=== PATIENT | female | born 1950 | race Caucasian/White ===

== ENCOUNTER → 2024-10-04 11:23 | Outpatient (REF) | payer MEDICARE, OTHER, SELFPAY ==
[2024-10-04 12:42] LABS: Hematocrit 37.3 % (37.0-47.0); Hemoglobin 11.8 g/dL (12.0-16.0); Mean Corp Hgb Conc. 31.6 g/dL (33.0-37.0); Mean Corpuscular Volume 92.3 fL (81.0-99.0); Nucleated Red Blood Cells % 0 %; Platelet Count 297 10^3/uL (130-400); Red Cell Dist. Width 17.2 % (11.5-14.5)
[2024-10-04 13:03] LABS: ALT (SGPT) < 10 U/L (0-35); AST (SGOT) 19 U/L (14-36); Albumin 4.0 g/dl (3.5-5.0); Alkaline Phosphatase 46 U/L (38-126); Blood Urea Nitrogen 18 mg/dl (7-17); Calcium 9.4 mg/dl (8.4-10.2); Carbon Dioxide 26 mmol/L (22-30); Chloride 105 mmol/L (98-107); Glucose 110 mg/dl (70-99); Potassium 4.6 mmol/L (3.5-5.1); Sodium 136 mmol/L (135-145); Total Protein 6.4 g/dl (6.3-8.2); eGFR > 60.00
[2024-10-04 13:09] LABS: C-Reactive Protein < 5.00 mg/L (0.0-10.00)
== END ==
LOC: RAD 11:23
PROVIDERS: ATTENDING PHYSICIAN Podiatrist; FAMILY PHYSICIAN Internal Medicine Rheumatology; REFERRING PHYSICIAN Family Medicine
DX: R60.0 Localized edema (principal)
CPT/HCPCS: 36415; 80053; 85025; 85652; 86140; 93971

== ENCOUNTER 2024-11-04 09:32 | Inpatient (IN) | payer MEDICARE, OTHER, SELFPAY ==
[2024-11-02] VITALS (12 sets, daily range): BP systolic 105–170; BP diastolic 61–135; BMI 17.8; BMI 19.2
--- NOTE | 2024-11-02 08:39 | ED.GENMED ---
History of Present Illness
General
Chief Complaint: Change in Mental Status
Time Seen by Provider: 11/02/24 08:39
History of Present Illness
History of Present Illness:
PAST MEDICAL HISTORY AND REVIEW OF OLD RECORDS
- The patient has a history of diverticular disease with colostomy related to ruptured diverticuli, history of memory loss. The patient had an endoscopy approximately 6 weeks ago that showed a hiatal hernia, single gastric polyp that was resected,
antral erythema and stomach mucosal changes were biopsied.
Note:
CHIEF COMPLAINT(S)
Headache and change in mental status.
HISTORY OF PRESENT ILLNESS
The patient is a 74-year-old female who presents with complaints of headache and a change in mental status. Her reports that the headache and ear pain have been present since June, with variable symptoms. Additionally, she has been
increasingly weak at home with fluctuating mental status, which is a significant concern and prompted the visit today. The patient lives at home with her . She is oriented to person but is unable to correctly identify the month or the
hospital she is currently in.
ADDITIONAL HISTORY OBTAINED FROM SOURCE OTHER THAN PATIENT
Per the patients , the patient has been experiencing a headache and ear pain since June, along with increased weakness and changes in mental status.
EXTERNAL RECORDS REVIEWED
The patients records indicate that she has an existing colostomy.
PHYSICAL EXAM
General: Alert, no acute distress.
Skin: Warm, dry.
Head: Normocephalic, atraumatic.
Neck: Supple, trachea midline.
Eye Ears, nose, mouth, and throat: Oral mucosa slightly dry.
Cardiovascular: Normal peripheral perfusion, No edema. Regular rhythm.
Respiratory: Respirations are non-labored.
Gastrointestinal: Abdomen nondistended. Colostomy bag present. Nontender abdomen.
Back: Normal range of motion
Musculoskeletal: Normal ROM, normal strength.
Neurological: Alert and oriented to person, she knows she is at a hospital but cannot recall which , she thinks it is February (currently October). No motor or sensory deficits.
Psychiatric: Cooperative, appropriate mood & affect. Memory impairment noted.
PLAN
- Obtain a urine sample via catheterization for analysis.
- Perform a CT scan of the brain to assess for any acute intracranial pathology.
- Administer intravenous fluids.
- Monitor and reassess the patients condition after initial interventions.
DIFFERENTIAL DIAGNOSIS
The Differential Diagnosis includes, in no particular order and is not limited to:
- Stroke
- Transient ischemic attack (TIA)
- Intracranial mass or lesion
- Dementia or delirium
- Urinary tract infection with delirium
- Medication side effects or intoxication
- Metabolic derangements (e.g., electrolyte imbalance)
- Infection (e.g., meningitis, encephalitis)
- Depression or other psychiatric conditions
SUMMARY OF ENCOUNTER
The patient presented to the emergency department with complaints of headache and changes in mental status. Her symptoms have been chronic but with a recent increase in weakness and altered mental alertness at home, as reported by her . The
initial clinical evaluation included obtaining a urine sample and planning for a CT scan to further investigate potential acute causes of her symptoms.
MEDICAL DECISION MAKING
1. Number and Complexity of Problems Addressed: Chronic conditions affecting care [Existing colostomy] along with the differential diagnosis list.
2. Data:
- Category 1: Tests and documents
- Urinalysis and CT scan of the brain are planned.
- Category 2: Assessment requiring an independent historian(s)
- Information was obtained from the patients regarding the onset and nature of symptoms.
3. Risk:
- Prescription drug management or therapy requiring monitoring for toxicity.
- Decisions regarding diagnostic testing with risks (e.g., CT scan with radiation exposure).
DIAGNOSIS
- Headache, unspecified (ICD-10: R51.9)
- Altered mental status (ICD-10: R41.82)
RADIOLOGY
- CT head shows no acute abnormality other than meningiomas which were present in the past.
EKG
- Sinus 77 precordial T wave inversion however this is similar to EKG from July of this year
LABS
- The urinalysis shows no clear sign of infection, white count and hemoglobin are both normal, chemistry shows sodium of 132, bicarb normal, renal function normal
UPDATE
-SUMMARY OF ENCOUNTER
The patient, a 74-year-old female, was seen in the emergency department for severe headaches, ear pain, and jaw pain. Upon evaluation, a CT scan of the brain was performed to rule out acute intracranial pathology such as bleeding or tumors. The CT
scan showed the presence of meningiomas, which had been previously identified and known to be benign. The primary concern today involved her being unresponsive earlier and lying in bed in a puddle of urine. The patient has a known history of
temporal arteritis for which she is being treated with prednisone and infusions of abatacept (Orencia). The patients increased mental alertness and responsiveness were noted after administration of intravenous fluids. Her condition is complicated by
jaw clicking sounds possibly related to temporomandibular joint (TMJ) issues, which prompts a suggested referral to an oral surgeon. Further evaluation with additional blood tests, including sedimentation rate (ESR) and C-reactive protein (CRP),
were ordered to assess for inflammation or signs of temporal arteritis exacerbation.
PLAN
- Perform an EKG and additional blood tests including sedimentation rate (ESR) and C-reactive protein (CRP) to assess inflammation.
- Continue monitoring the patients condition and response to intravenous fluids.
- Suggest patient follow-up with an oral surgeon and potentially a regular dentist for the TMJ-related issues and evaluate the Eustachian tube.
- Continue current regimen for temporal arteritis, with ongoing management by her derrick builder.
- Keep an alert for further unresponsiveness or changes in her mental state.
INDEPENDENT REVIEW OF LABS AND INTERPRETATION OF TESTS
- My independent review of the urine test is no sign of infection.
- My independent review of the CT scan indicates the presence of meningiomas with no acute intracranial pathology.
PATIENT EDUCATION AND COUNSELING
Patient was counseled on the benign nature of her meningiomas and the next steps for addressing TMJ issues and potential Eustachian tube dysfunction.
FOLLOW-UP INSTRUCTIONS
Patient is advised to follow up with an oral surgeon and their regular dentist regarding TMJ symptoms and possible Eustachian tube dysfunction. The patient should also maintain regular appointments with the derrick builder for management of temporal
arteritis.
MEDICATION RECONCILIATION
1. Prednisone (generic name) - current medication for temporal arteritis.
2. Abatacept (Orencia) - infusion therapy for temporal arteritis.
MEDICAL DECISION MAKING
- Number and Complexity of Problems Addressed: Chronic conditions affecting care [temporal arteritis, known meningiomas, TMJ disorder].
- Data:
Category 1:
- CT scan of the brain was independently reviewed.
- Clinical information was obtained from an independent historian, the patients .
Category 2:
- My independent interpretation of the CT scan of the brain shows no acute intracranial pathology.
Category 3:
- No specific discussion with other healthcare providers was documented in this encounter.
- Risk:
- Consideration of Admission/Observation: Escalation of care including admission/observation was considered given the complexity and risk of the patients presenting complaint, exam findings, and/or their underlying comorbidities. However,
ultimately, I feel the patient is safe for outpatient management with close follow-up. Reasoning: Work-up reassuring, does not reveal any acute life/organ threatening processes, patients symptoms well controlled upon reevaluation, reexamination is
reassuring, vitals are stable, patient agreeable with discharge, reliable for follow-up.
DIAGNOSIS
- Headache, unspecified (ICD-10: R51.9)
- Altered mental status (ICD-10: R41.82)
- Temporal arteritis (ICD-10: M31.5)
I communicated with ENT and oral surgery at 's request - ENT (Chuy) recommends anti-inflamm and muscle relaxer
I had discussion with Dr. Pearl Matute -she has no other clear recommendations from a rheumatologic standpoint. I am concerned about the rapid rise in the C-reactive protein. Of note she does have ulnar deviation to her fingers consistent
with rheumatoid arthritis however it is unclear to me if she does carry this diagnosis. She was also concerned because her mental status has been deteriorating last time she saw her seemed rather sharp. I have asked hospitalist to keep for further
evaluation.
Past History
Past History
ED Past Medical History: Other (chronic back pain, immunodeficiency, colostomy) and Other (Diverticulosis ulcer disease)
ED Past Surgical History: Bowel resection
Social History
Tobacco: Smoker
Alcohol: None
Drug: None
Personal:
Living: with family
Employment: Employed
Phy Exam
Physical Exam
Physical Exam:
See HPI
Course
Orders/Labs/Results
Orders:
Orders
11/02/24 08:44
Straight cath- Treatment ONCE
0.9% Sodium Chloride 500 ml [Nss] 500 ml IV BOLUS
11/02/24 08:45
CT Head W/o Iv Contrast Urgent
Comment:
Reason For Exam: altered mental status
11/02/24 08:59
C-Reactive Protein Urgent
Comment: ADD ON
Complete Blood Count/With Diff Urgent
Comprehensive Metabolic Panel Urgent
Erythrocyte Sed Rate Urgent
Comment: ADD ON
Urinalysis Reflex To Culture Urgent
Date Specimen was Collected: 11/02/24
Time Specimen was Collected: 08:51
Urine Microscopic Reflex Cult Urgent
Urine Culture Urgent
MARINO Source: U
Specimen Description:
Date Specimen was Collected: 11/02/24
Time Specimen was Collected: 08:51
11/02/24 10:23
Add On- LAB Urgent
Tests Added?: cRP ESR
11/02/24 10:24
Acetaminophen [Tylenol] 1,000 mg PO NOW STA
11/02/24 10:30
Electrocardiogram (*1) Urgent
Reason for Study: Syncope
EKG- Treatment ONCE
Abnormal Lab Results
11/02/24
08:59
MCHC 32.2 L g/dL
(33.0-37.0)
RDW 17.2 H %
(11.5-14.5)
Absolute Lymphs (auto) 0.6 L 10^3/uL
(1.2-3.4)
Absolute Monos (auto) 1.0 H 10^3/uL
(0.1-0.6)
Lymphocytes % 9.3 L %
(20.5-51.1)
Monocytes % 16.4 H %
(1.7-9.3)
ESR 61 H mm/hour
(0-20)
Sodium 132 L mmol/L
(135-145)
Chloride 97 L mmol/L
(98-107)
BUN 18 H mg/dl
(7-17)
C-Reactive Protein 181.50 H mg/L
(0.0-10.00)
Total Protein 6.2 L g/dl
(6.3-8.2)
Urine Bacteria (Reflex) Moderate A
(Negative)
Urine Albumin (Reflex) 1+ A
(Neg - Trace)
11/02/24 08:59
11/02/24 08:59
Vital Signs
Initial and Last Documented VS:
Initial Vital Signs
Pulse Resp BP Pulse Ox
86 19 124/70 96
11/02/24 08:40 11/02/24 08:40 11/02/24 08:40 11/02/24 08:40
Last Documented Vital Signs
Temp Pulse Resp BP Pulse Ox
37.1 C 81 23 137/80 95
11/02/24 08:41 11/02/24 10:23 11/02/24 10:23 11/02/24 10:23 11/02/24 10:23
*Pulse Oximetry
Patient hypoxic: no
*Critical Care Note
Total Time (30-74mins, 75-104mins- exclusive of procedures): Not Applicable
ED Attending Note
-
Portions of this chart may have been created with voice recognition software.� Occasional wrong word or��sound alike� substitutions may have occurred due to the inherent limitations of voice recognition software.
Discharge Plan
Departure
Patient Disposition: Admit
Date of Disposition: 11/02/24
Time of Disposition: 13:07
Presentation/result/management discussed w/ accepting MD/DO: Hospitalist
Discharge Problem:
Weakness
Prescriptions:
No Action
leflunomide 20 mg Tablet
20 mg PO DAILY
acetaminophen [Tylenol Extra Strength] 500 mg Tablet
500 mg PO TIDPRN PRN (Reason: mild pain)
levothyroxine 100 mcg Tablet
100 mcg PO DAILY
cyanocobalamin (vitamin B-12) 500 mcg Tablet
500 mcg PO DAILY
pantoprazole 40 mg Tablet,Delayed Release (Dr/Ec)
40 mg PO DAILY
gabapentin 300 mg Capsule
300 mg PO BID
folic acid 0.8 mg Capsule
0.8 mg PO DAILY
calcium citrate-vitamin D3 [Citracal + D Maximum] 315 mg-6.25 mcg (250 unit) Tablet
1 tab PO TID
magnesium oxide 400 mg magnesium Tablet
400 mg PO DAILY
sodium chloride 1 gram Tablet
1,000 mg PO DAILY
Orencia 50 mg/0.4 mL Syringe
50 mg SC MONTHLY
prednisone 1 mg Tablet
6 mg PO DAILY
Referrals:
Peter Keenan MD [Family Provider]
Interventions
Interventions:
*Risk Screen - Suicide Last Done: 11/02/24 09:09
*General Assessment Last Done: 11/02/24 09:09
*Neglect/Abuse Screening Last Done: 11/02/24 09:09
*ED- Fall Risk Assessment Last Done: 11/02/24 09:09
*ED COVID-19 Vaccine History Last Done: 11/02/24 09:09
ED- Neurological Assessment Last Done: 11/02/24 09:09
ED- Cardiac Assessment Last Done: 11/02/24 09:09
Discharge Date and Time
Print Language: TAMAZIGHT
[2024-11-02] MEDS: NSS 500 IV (08:53)
[2024-11-02 09:08] LABS: Hematocrit 40.7 % (37.0-47.0); Hemoglobin 13.1 g/dL (12.0-16.0); Mean Corp Hgb Conc. 32.2 g/dL (33.0-37.0); Mean Corpuscular Volume 90.4 fL (81.0-99.0); Nucleated Red Blood Cells % 0 %; Platelet Count 247 10^3/uL (130-400); Red Cell Dist. Width 17.2 % (11.5-14.5)
[2024-11-02 09:12] LABS: Urine Character Slightly Cloudy (Clear)
[2024-11-02 09:18] LABS: Urine Red Blood Cell 0-2 /HPF (0-2); Urine Urothelial Cell 0-2 /LPF (FEW); Urine White Cell 0-2 /HPF (0-5)
[2024-11-02 09:28] LABS: ALT (SGPT) 14 U/L (0-35); AST (SGOT) 29 U/L (14-36); Albumin 3.7 g/dl (3.5-5.0); Alkaline Phosphatase 56 U/L (38-126); Blood Urea Nitrogen 18 mg/dl (7-17); Calcium 9.6 mg/dl (8.4-10.2); Carbon Dioxide 29 mmol/L (22-30); Chloride 97 mmol/L (98-107); Estimated Creatinine Clearance 45 ml/min; Glucose 90 mg/dl (70-99); Potassium 4.7 mmol/L (3.5-5.1); Sodium 132 mmol/L (135-145); Total Protein 6.2 g/dl (6.3-8.2); eGFR > 60.00
[2024-11-02] MEDS: TYLENOL 1000 MG PO (11:00)
[2024-11-02 11:44] LABS: C-Reactive Protein 181.50 mg/L (0.0-10.00)
--- NOTE | 2024-11-02 14:06 | HPS.HSE ---
Addendum entered and electronically signed by Roger Goel MD 11/02/24 22:53:
Attending Addendum-
I performed a history and physical exam of the patient and discussed his management with the resident. I reviewed the resident's note and agree with the documented findings and plan of care CC/HPI- seen with providing history. patient is a
poor history due to imparied memory. 'I dont know ask my ' per has been difficult to arouse in the am has had increased right sided jaw pain mild SALDIVAR and polyuria. No fevers chills vision changes. Full 12 point ROS reviewed and
negative except as documented Exam- vitals reviewed in EMR GEN-NAD HEENT no TA tenderness heart RRR lungs clear abd soft ostomy present with brown stool LE no edema Neuro AAO x 2
Plan:
# change in MS
- unclear etiology
- head ct-Moderate atrophy. Moderate to severe leukomalacia, no bleed
- r/o causes of delirium
- likely progression of dementia
# H/O GCA
- elevated EST CRP
- double dose of steroids
- CTM
# Hyponatremia
- appears euvolemic
- likely SIADH
- cont salt tabs and fluid restrict
- recheck BMP in am
# RA- cont abatacept as OP and leflunomide
# Tobacco abuse- advised to quit
# PN- cont gabapentin
# Lumbar stenosis and comp fx- s/p stimulator
# GERD- cont Protonix
# Hypothyroidism-cont levothyroxine check TSH
# h/o diverticular dz- has ostomy - cont ostomy care
code FULL d/w POA
Dispo DC home with in am
ACP
Patient consented to discuss, was with , time spent explanation of advance directives, changes in health status, patient�s health care wishes if the patient becomes unable to make health decisions, goals of care, code status, and prognosis-
16 minutes
Time spent coordinating care, review of plan of care with resident, personally reviewed previous records in EMR, med rec, labs, radiology, d/w nursing, family total time documented is exclusive of any additional time listed that was spent in advance
care planning discussion -�75 minutes
Original Note:
Family Physician
-
Family Physician: Peter Keenan
Chief Complaint
-
Weakness
History of Present Illness
This is a 74-year-old female with known history of gastric ulcer, hypothyroidism, hypertension, smoking, diverticular disease with colostomy related to ruptured diverticuli, temporal arthritis(on prednisone and Orencia) history of memory loss,
history of GI bleed and hiatal hernia presenting in the emergency department with complaints of mild diffuse headache and weakness. Some of the history is also obtained from the chart review which mentioned that there was a concern of change in
mental status from the however the was not present at the time of my interaction with the patient.
Chart review also states that there has been mention the headache, jaw pain and ear pain has been present since June with variable symptoms. She has been increasingly getting weak with fluctuating mental status.
Patient lives at home with her .
In the ER patient had a CT head which did not show any acute abnormality other than meningiomas which were also present in the past. EKG showed sinus rhythm and it was mostly similar to the previous EKG. Urinalysis did not show any clear sign of
infection. White count and hemoglobin were normal. Chemistry showed mild hyponatremia to 132. Bicarb was normal and renal function was also normal. ESR of 61. CRP of 181.5
Patient's mental alertness and responsiveness was noted after given IV fluids in the ER.
Case was discussed by ER physician with ENT and oral surgery at 's request.-ENT recommended anti-inflammatory and muscle relaxers.
Case was also discussed with welding machine feeder. Dr. Pearl Matute -she has no other clear recommendations from a rheumatologic standpoint.
Medical History
Past Medical History
Past Medical History: Reports Hypothyroidism and Other (Diverticulitis status post hemicolectomy with ileostomy, temporal arteritis, gastric ulcers, hypothyroidism, hypotension, smoker,)
Past Surgical History: Reports Orthopedic
Additional Past Surgical History:
Right shoulder replacement, rotator cuff surgery left shoulder, bilateral hip replacement, back surgeries, cataracts, hand surgeries
Social History
Tobacco: Smoker
Alcohol: Occasional
Drug: None
Personal:
Living: With Family
Employment: Not Employed
Family History
Family History: Not pertinent
Allergies / Home Medications
Allergies reflects when Allergies were last updated in [facility].
Home Medications with original date entered in [facility]
Allergy/Medication List:
Allergies
Allergy/AdvReac Type Severity Reaction Status Date / Time
clindamycin Allergy Anaphylaxis Verified 10/13/24 11:37
Penicillins Allergy Anaphylaxis Verified 10/13/24 11:37
NKA - No Known Allergies Allergy Uncoded 10/13/24 11:37
Home Medications
acetaminophen 500 mg tablet (Tylenol Extra Strength) 500 mg PO TIDPRN PRN mild pain 07/06/24
calcium 315 mg (as citrate)-vitamin D3 6.25 mcg (250 unit) tablet (Citracal + Vitamin D Maximum) 1 tab PO TID Supplement 07/06/24
cyanocobalamin (vitamin B-12) 500 mcg tablet 500 mcg PO DAILY Supplement 07/06/24
folic acid 0.8 mg capsule 0.8 mg PO DAILY Supplement 07/06/24
gabapentin 300 mg capsule 300 mg PO BID Pain 07/06/24
leflunomide 20 mg tablet 20 mg PO DAILY Autoimmune Disorder 07/06/24
levothyroxine 100 mcg tablet 100 mcg PO DAILY Thyroid 07/06/24
magnesium oxide 400 mg PO DAILY Supplement 07/06/24
pantoprazole 40 mg tablet,delayed release 40 mg PO DAILY Gastrointestinal Issue 07/06/24
abatacept 50 mg/0.4 mL subcutaneous syringe (Orencia) 50 mg SC MONTHLY 09/18/24
sodium chloride 1 gram tablet 1,000 mg PO DAILY 09/18/24
prednisone 1 mg tablet 6 mg PO DAILY 11/02/24
Review of Systems
-
History Source: Patient
Constitutional: Reports No Symptoms
EENT: Reports Other (Jaw pain)
Respiratory: Reports No Symptoms
Cardiac: Reports No Symptoms
Abdomen/GI: Reports No Symptoms
: Reports No Symptoms
Musculoskeletal: Reports Other (Generalized weakness)
Skin: Reports No Symptoms
Neurological: Reports No Symptoms and Headache
Endocrine: Reports No Symptoms
Hematologic/Lymphatic: Reports No Symptoms
Psych: Reports No Symptoms
Physical Exam
Vital Signs
Vital Signs
Temp Pulse Resp BP Pulse Ox
98.8 F 75 19 133/85 96
11/02/24 08:41 11/02/24 13:00 11/02/24 13:00 11/02/24 13:00 11/02/24 13:00
Physical Exam
General: No Apparent Distress and Appears Chronically Ill
Respiratory: Clear and Non Labored Respirations
Cardiac: S1/S2 and Regular Rhythm
GI: Soft and Ostomy
Musculoskeletal: Other (Ulnar deviation of hands)
Skin: Warm
Neuro: Awake, Alert and Other (Not oriented to time)
Psych: Calm
Laboratory Results
-
11/02/24 08:59
11/02/24 08:59
Laboratory Results
Total Bilirubin 0.9 mg/dl (0.2-1.3) 11/02/24 08:59
AST 29 U/L (14-36) 11/02/24 08:59
ALT 14 U/L (0-35) 11/02/24 08:59
Alkaline Phosphatase 56 U/L (38-126) 11/02/24 08:59
Data Reviewed
-
CT Scan: Report Reviewed by me, Discussed with Physician and Discussed with Patient
Lab Data: Labs Reviewed by me, Discussed with Physician and Discussed with Patient
Impression/Plan
-
74-year-old female presented with concerns of weakness and ear and jaw pain.
# Weakness
# Failure to thrive
- No signs of infections at this time; no neurological deficit
- Admit the patient under observation
- pt/ot eval
# Altered mental status
# Progressive dementia
- Head CT with significant progression of atrophy and leukomalacia
- Per ER doctor mentation improved after 500 mL normal saline bolus
# Right ear pain
# Right jaw pain
- Patient was given 1 g p.o. Tylenol in the ED
- Able to move the jaw without any pain no motor deficits.
# Headache
# Known meningiomas from previous imaging
- Patient rates the pain as more of a discomfort rather than pain
- Head CT with no new acute findings however there is significant progression of atrophy and leukomalacia
# Hyponatremia
- Continue to monitor currently at 132
- Continue home sodium chloride 1000 mg tablet daily
Chronic problems:
#History of diverticulitis
- status post hemicolectomy with ileostomy,
#Temporal arteritis
- Patient on monthly Orencia with last dose on October 26
- Patient currently on prednisone 6 mg daily ; increase the dose to 12 mg while she is in the hospital
- Leflunomide 20 mg daily; continue
-- ESR is elevated to 61 and CRP is elevated to 181; unclear reason; no new recommendations from welding machine feeder
# History of peptic ulcer disease
- Continue pantoprazole 40 mg daily
#Hypothyroidism
- Continue levothyroxine 100 mcg daily
# History of hypotension
- Continue to monitor; currently stable
#Chronic pain
- Continue gabapentin 300 mg twice daily
#Tobacco smoking
- Encouraged to quit
CODE STATUS: Full code
DVT prophylaxis: SCDs
--- NOTE | 2024-11-02 14:31 | CM ---
Patient seen at bedside in ED> Patient states that she lives with her in a 2 story home. Patient has 2 walkers, cane and wheelchair. Patient PCP is Dr. Peter Keenan and she uses the [facility] in [place]. Patient has had VN from [place] [facility] in the distant past and has been at the [facility] also in the distant past. Patient confirmed above information via phone and stated that the patient has had pain in ear and head for several months with increased confusion
recently. CM will continue to follow for discharge planning needs.
Plan; home with and VN vs SNF; pending medical treatment plan.
--- NOTE | 2024-11-02 17:09 | PTCARENOTE ---
patient arrived to 3 west via stretcher from ER via stretcher. assist x1 to br, gait steady, oriented to room and use of call schafer, vss, will continue to monitor. (please see full shift assessment)
[2024-11-02] MEDS: OSCAL 500 + D 500 MG PO ×2 (18:23→21:55)
[2024-11-02] MEDS: NEURONTIN 300 MG PO (21:55)
[2024-11-02] MEDS: TYLENOL 500 MG PO (21:55)
--- NOTE | 2024-11-02 23:24 | W.PN.UPDATE ---
Update Note
Progress Note Update
Called to room, handed phone by patient's . called her (patient's) Pipe Organ Builder, Dr. Sonia Matute to discuss this admission. Dr. Zamora recommendation is to start patient on Prednisone 60 mg PO now and continue that dose
daily. Reviewed recommendation with night time Hospitalist, agreed with Dr. Matute recommendation. Ordered Prednisone 60 mg PO now and continued daily. updated on plan of care and in agreement.
[2024-11-03] MEDS: DELTASONE 60 MG PO ×2 (00:10→12:56)
[2024-11-03] MEDS: SYNTHROID 100 MCG PO (05:53)
[2024-11-03 06:25] LABS: Hematocrit 38.6 % (37.0-47.0); Hemoglobin 12.9 g/dL (12.0-16.0); Mean Corp Hgb Conc. 33.4 g/dL (33.0-37.0); Mean Corpuscular Volume 88.7 fL (81.0-99.0); Platelet Count 247 10^3/uL (130-400); Red Cell Dist. Width 16.6 % (11.5-14.5)
[2024-11-03 07:00] LABS: ALT (SGPT) 13 U/L (0-35); AST (SGOT) 29 U/L (14-36); Albumin 3.6 g/dl (3.5-5.0); Alkaline Phosphatase 65 U/L (38-126); Blood Urea Nitrogen 15 mg/dl (7-17); Calcium 9.3 mg/dl (8.4-10.2); Carbon Dioxide 23 mmol/L (22-30); Chloride 100 mmol/L (98-107); Estimated Creatinine Clearance 61 ml/min; Glucose 122 mg/dl (70-99); Magnesium 1.8 mg/dl (1.6-2.3); Potassium 5.0 mmol/L (3.5-5.1); Sodium 130 mmol/L (135-145); Total Protein 6.2 g/dl (6.3-8.2); eGFR > 60.00
[2024-11-03 07:13] LABS: C-Reactive Protein > 270.00 mg/L (0.0-10.00)
--- NOTE | 2024-11-03 07:23 | W.PN.HOSP.TC ---
Addendum entered and electronically signed by Roger Goel MD 11/03/24 21:37:
Attending Addendum-I saw and evaluated the patient. I reviewed the resident�s note and agree with findings and plan as documented in the resident�s note. Sub: complains if right temporal area swelling and pain. No vision changes, right sided jaw
pain is moderate, mild SALDIVAR. No fevers chills. Full 12 point ROS reviewed and negative except as documented Exam- vitals reviewed in EMR GEN-NAD HEENT TA swelling and tenderness palpated heart RRR lungs clear abd soft ostomy present with brown stool
LE no edema arthritic hands Neuro AAO x 2
Plan:
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
- head ct-Moderate atrophy. Moderate to severe leukomalacia, no bleed
- likely in part progression of dementia as well
# GCA flare
- much higher CRP
- increase steroids to 60mg daily
- CTM
# Hyponatremia
- appears hypovolemic
- IVF trial
- cont salt tabs
- recheck BMP in am
# Coccyx stage 2 PI- POA - wound care
# RA- cont abatacept as OP and leflunomide
# Tobacco abuse- advised to quit
# PN- cont gabapentin
# Lumbar stenosis and comp fx- s/p stimulator
# GERD- cont Protonix
# Hypothyroidism-cont levothyroxine check TSH
# h/o diverticular dz- has ostomy - cont ostomy care
code FULL d/w POA
Dispo DC home with in am if improved
DVTp- start lovenox
Time spent coordinating care, review of plan of care with resident, personally reviewed records in EMR, med rec, consults, notes, labs, radiology, d/w nursing and POA� 52 mins
Original Note:
Today's Communication/Plan
-
Continue prednisone 60 mg while she is in the hospital
1 L normal saline fluid
Labs including CBC, BMP, ESR and CRP in the a.m.
Assessment / Plan
Assessment / Plan
74-year-old female presented with concerns of weakness and ear and jaw pain.
#Temporal arteritis/GCA
# Right ear and jaw pain
- Visible swelling and pain in the right TMJ region. Tender to touch
- There is elevation of CRP; continue on increased dose of prednisone 60 mg
- Patient on monthly Orencia with last dose on October 26
- Patient on home prednisone 6 mg daily ; increase the dose to 60mg
- Leflunomide 20 mg daily; continue
-- ESR is elevated to 61 and CRP is elevated to 181---> 270
# Weakness
# Failure to thrive
- No signs of infections at this time; no neurological deficit
- pt/ot eval
# Altered mental status
# Progressive dementia
- Head CT with significant progression of atrophy and leukomalacia
- Overall patient AAO x 3
# Headache
# Known meningiomas from previous imaging
- Patient rates the pain as more of a discomfort rather than pain; resolved mostly
- Head CT with no new acute findings however there is significant progression of atrophy and leukomalacia
# Hyponatremia
- Continue to monitor; down from 132--- >130
- Continue home sodium chloride 1000 mg tablet daily
- 1 L NS IVF
#History of diverticulitis
- status post hemicolectomy with ileostomy,
# History of peptic ulcer disease
- Continue pantoprazole 40 mg daily
#Hypothyroidism
- Continue levothyroxine 100 mcg daily
# History of hypotension
- Continue to monitor; currently stable
#Chronic pain
- Continue gabapentin 300 mg twice daily
#Tobacco smoking
- Encouraged to quit
CODE STATUS: Full code
DVT prophylaxis: SCDs
Anticipated Discharge: Within 24 hours
Subjective/Interval History
-
Date of Service: November 03, 2024
Patient lying in the bed. Complaining of pain in in front of the right ER especially with jaw movement during eating.
Objective Data
-
Labs:
Laboratory Results
11/03/24
05:52
WBC 7.1
Hgb 12.9
Hct 38.6
Plt Count 247
Sodium 130 L
Potassium 5.0
Chloride 100
Carbon Dioxide 23
BUN 15
Creatinine 0.6
Glucose 122 H
Calcium 9.3
Total Bilirubin 1.1
AST 29
ALT 13
Alkaline Phosphatase 65
Vital Signs:
Vital Signs
Temp Pulse Resp BP Pulse Ox
98.6 F 92 14 170/135 95
11/02/24 23:35 11/02/24 23:35 11/02/24 23:35 11/02/24 23:35 11/02/24 23:35
Review of Systems
-
History Source: Patient
All other systems: Reviewed and negative (Except as documented)
Musculoskeletal: Reports Other (Right jaw pain in front of the year)
Physical Exam
-
General: Well Developed and Well Nourished
HEENT: Normocephalic, Atraumatic and Other (Visible swelling near the right TMJ)
Respiratory: Clear to Auscultation and Non Labored Respirations
Cardiac: Regular Rhythm and S1/S2
GI: Soft and Ostomy
Musculoskeletal: Other (Ulnar deviation of the hands.)
Skin: Warm and Dry
Neuro: Awake, Alert and Oriented
Psych: Calm
Data Reviewed
-
Labs: Labs Reviewed by me, Discussed with Physician and Discussed with Patient
[2024-11-03 07:40] VITALS: BP 128/74
[2024-11-03] MEDS: VITAMIN B-12 500 MCG PO (10:03)
[2024-11-03] MEDS: NEURONTIN 300 MG PO ×2 (10:04→22:00)
[2024-11-03] MEDS: SODIUM CHLORIDE 1 GRAM PO (10:04)
[2024-11-03] MEDS: OSCAL 500 + D 500 MG PO ×3 (10:04→22:02)
[2024-11-03] MEDS: PROTONIX 40 MG PO (10:04)
[2024-11-03] MEDS: MAG-TAB SR 84 MG PO (10:04)
[2024-11-03] MEDS: FOLVITE 1 MG PO (10:05)
[2024-11-03 12:07] VITALS: BP 150/90; PULSE 95; O2SAT 93
[2024-11-03 12:09] VITALS: BP 150/90; O2SAT 95
[2024-11-03] MEDS: NSS 1000 IV (12:50)
--- NOTE | 2024-11-03 14:10 | PN.CDI ---
CDI
- -
CDI:
Physician Documentation Request
Admit Date: 11/02/24 15:17
Dear Doctor Kasey,
Clinical Indicators:
Patient admitted with weakness/change in mental status.
8/ RN skin/wound assessment: Coccyx Stage 2 Pressure Injury, POA
Treatment: Silicone border foam dressing
Physician documentation of the type and location of wounds is required for compliant documentation. Based on the above clinical findings and your assessment, please provide the following in your progress note:
1. Location of the ulcer/wound, including laterality.
2. Type (etiology) of ulcer/wound:
- Pressure (decubitus) ulcer
- Other
3. If a pressure ulcer, please also include the stage* of the ulcer:
- Stage 1 - Skin intact, non-blanchable redness
- Stage 2 - Partial thickness loss of dermis, includes intact or open blister
- Stage 3 - Full thickness tissue not including bone, tendon or muscle
- Stage 4 - Full thickness tissue loss, including exposed bone, tendon or muscle
- Unstageable - Full thickness loss in which the base of the ulcer is covered by slough (yellow, bryant, diallo, green or brown) and/or eschar (bryant, brown or black) in the wound bed.
- Unable to determine
Use of terms such as suspected, likely, concern for, or probable (associated with a specific diagnosis that is being evaluated, monitored, or treated as if it exists) are acceptable and can be coded in the inpatient setting, when documented at the
time of discharge.
Thank you,
MISAEL Borrero RN
CDI Specialist
available via tiger text
Please use your independent medical judgment in providing your response.
*Source: National Pressure Ulcer Advisory Panel (NPUAP)
[2024-11-03 15:00] VITALS: BP 154/93
[2024-11-03] MEDS: LOVENOX 30 MG SC (22:00)
[2024-11-03] MEDS: TYLENOL 500 MG PO (22:02)
[2024-11-03 23:00] VITALS: BP 167/96
[2024-11-04] MEDS: NSS 1000 IV (05:14)
[2024-11-04] MEDS: SYNTHROID 100 MCG PO (05:37)
[2024-11-04 06:07] LABS: Hematocrit 36.5 % (37.0-47.0); Hemoglobin 12.3 g/dL (12.0-16.0); Mean Corp Hgb Conc. 33.7 g/dL (33.0-37.0); Mean Corpuscular Volume 87.3 fL (81.0-99.0); Platelet Count 282 10^3/uL (130-400); Red Cell Dist. Width 16.4 % (11.5-14.5)
[2024-11-04 06:38] LABS: Blood Urea Nitrogen 21 mg/dl (7-17); Calcium 10.0 mg/dl (8.4-10.2); Carbon Dioxide 23 mmol/L (22-30); Chloride 102 mmol/L (98-107); Estimated Creatinine Clearance 61 ml/min; Glucose 127 mg/dl (70-99); Potassium 4.7 mmol/L (3.5-5.1); Sodium 131 mmol/L (135-145); eGFR > 60.00
[2024-11-04 06:54] LABS: C-Reactive Protein 193.30 mg/L (0.0-10.00)
[2024-11-04 07:00] VITALS: BP 183/104
--- NOTE | 2024-11-04 07:10 | W.PN.HOSP.TC ---
Addendum entered and electronically signed by Roger Goel MD 11/04/24 20:52:
Attending Addendum-I saw and evaluated the patient. I reviewed the resident�s note and agree with findings and plan as documented in the resident�s note. Sub: patient crying in pain in jaw and right side of face after eating. No vision changes. No
fevers chills. Full 12 point ROS reviewed and negative except as documented Exam- vitals reviewed in EMR GEN-mos distress HEENT right sided facial swelling, tenderness to palp, TA pulse absent heart RRR lungs clear abd soft ostomy present with
brown stool LE no edema Neuro AAO x 2
Plan:
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
- head ct-Moderate atrophy. Moderate to severe leukomalacia, no bleed
- likely in part progression of dementia as well
# GCA flare
- ESR increasing, CRP decreasing
- repeat CRP in am
- cont prednisone 60mg daily- eventual start to taper in @ 2 weeks
- d/w rheum - curbside
- pain control
# Right sided Facial swelling
- d/w ENT check CT face/neck for further eval
# Hyponatremia
- appears hypovolemic
- encourage PO
- cont salt tabs
- recheck BMP in am
# HTN
- exacerbated by pain and steroids but likely chronic
- start norvasc
# Coccyx stage 2 PI- POA - wound care
# RA- cont abatacept as OP and leflunomide
# Tobacco abuse- advised to quit
# PN- cont gabapentin
# Lumbar stenosis and comp fx- s/p stimulator
# GERD- cont Protonix
# Hypothyroidism-cont levothyroxine
# h/o diverticular dz- has ostomy - cont ostomy care
code FULL d/w POA
Dispo PT rec SNF
DVTp- cont lovenox
Time spent coordinating care, review of plan of care with resident, personally reviewed records in EMR, med rec, consults, notes, labs, radiology, d/w nursing rheum and POA� 54 mins
Original Note:
Today's Communication/Plan
-
Eventual discharge to skilled rehab; ed case manager aware and working on
Maintain prednisone 60 mg for now until patient see outpatient hand rug braider before starting taper.
Start tramadol 50 mg every 6 as needed for pain
Start Norvasc for hypertension
Assessment / Plan
Assessment / Plan
74-year-old female presented with concerns of weakness and ear and jaw pain.
#Temporal arteritis/GCA flareup
# Right ear and right TMJ pain
- Visible swelling and pain in the right TMJ region. Tender to touch; visibly less than yesterday
- continue on increased dose of prednisone 60 mg; plan is to at least continue for 1 week before tapering; at home patient is on 6 mg prednisone daily
- Patient on monthly Orencia with last dose on October 26
- Leflunomide 20 mg daily; continue
-- ESR is elevated to 61 initially and now >145
--CRP initially elevated to 181---> 270; now coming down to 193
- Tramadol 50 mg every 6 as needed for pain
# Weakness
# Failure to thrive
- No signs of infections at this time; no neurological deficit
- pt/ot recommended skilled rehab; patient amenable; prefers [facility]; will check with the ed case manager for approval/Auth
# Altered mental status
# Progressive dementia
- Head CT with significant progression of atrophy and leukomalacia
- Overall patient AAO x 3
# Headache
# Known meningiomas from previous imaging
- Patient rates the pain as more of a discomfort rather than pain; resolved mostly
- Head CT with no new acute findings however there is significant progression of atrophy and leukomalacia
- Intermittent per patient
# Acute on chronic hyponatremia
- Continue to monitor; down from 132--- >130--->131(uses sodium tabs on daily basis at home)
- Continue home sodium chloride 1000 mg tablet daily
- 1 L NS IVF
#History of diverticulitis
- status post hemicolectomy with ileostomy,
# Hypertension
- Patient currently not on any antihypertensive
- Likely elevated blood pressure in the setting of increased steroid doses and ongoing pain
- Will start Norvasc 5 mg p.o. daily; ctm
# History of peptic ulcer disease
- Continue pantoprazole 40 mg daily
#Hypothyroidism
- Continue levothyroxine 100 mcg daily
# History of hypotension
- Continue to monitor; currently stable
#Chronic pain
- Continue gabapentin 300 mg twice daily
#Tobacco smoking
- Encouraged to quit
Coccyx Stage 2 Pressure Injury, POA
update:
Received a message from patient's hand rug braider Dr. Sera Calderon to discuss patient's condition in the evening. Called her and discussed in length regarding ongoing care and plan. She mentioned that she is concerned about the swelling and
usually GCA does not have significant swellings on the face. Even though there is no white count and no fever she was concerned that there is possible abscess and requested us to consider imaging studies. Agree to get CT with ongoing pain and
swelling. After discussion with the radiologist order placed for CT neck with IV
CODE STATUS: Full code
DVT prophylaxis: Lovenox
Dispo: SNF
Anticipated Discharge: > 48 hours
Subjective/Interval History
-
Date of Service: November 04, 2024
Seen and examined at bedside. Reports that she is feeling better today with less pain and less swelling in front of the right ear. Overall she continues to feel weak.
Objective Data
-
Labs:
Laboratory Results
11/04/24
05:41
WBC 7.9
Hgb 12.3
Hct 36.5 L
Plt Count 282
Sodium 131 L
Potassium 4.7
Chloride 102
Carbon Dioxide 23
BUN 21 H
Creatinine 0.6
Glucose 127 H
Calcium 10.0
Vital Signs:
Vital Signs
Temp Pulse Resp BP Pulse Ox
98.1 F 71 16 167/96 96
11/03/24 23:00 11/03/24 23:00 11/03/24 23:00 11/03/24 23:00 11/03/24 23:00
I&O
11/03/24 11/04/24 11/05/24
06:59 06:59 06:59
Intake Total 1560 / 1560
Balance 1560 / 1560
Review of Systems
-
History Source: Patient
All other systems: Reviewed and negative (Except as documented)
Musculoskeletal: Reports Other (Right jaw pain in front of the right ear)
Physical Exam
-
General: Well Developed and Well Nourished
HEENT: Normocephalic, Atraumatic and Other (Visible swelling near the right TMJ; visibly reduced as compared to yesterday)
Respiratory: Clear to Auscultation and Non Labored Respirations
Cardiac: Regular Rhythm and S1/S2
GI: Soft and Ostomy (With brownish stools)
Musculoskeletal: Other (Ulnar deviation of the hands.)
Skin: Warm and Dry
Neuro: Awake, Alert and Oriented
Psych: Calm
Data Reviewed
-
Labs: Labs Reviewed by me, Discussed with Physician and Discussed with Patient
[2024-11-04] MEDS: DELTASONE 60 MG PO (09:06)
[2024-11-04] MEDS: VITAMIN B-12 500 MCG PO (09:07)
[2024-11-04] MEDS: NEURONTIN 300 MG PO ×2 (09:07→20:51)
[2024-11-04] MEDS: MAG-TAB SR 84 MG PO (09:07)
[2024-11-04] MEDS: PROTONIX 40 MG PO (09:08)
[2024-11-04] MEDS: SODIUM CHLORIDE 1 GRAM PO (09:08)
[2024-11-04] MEDS: OSCAL 500 + D 500 MG PO ×3 (09:08→20:51)
[2024-11-04] MEDS: FOLVITE 1 MG PO (09:09)
[2024-11-04] MEDS: TYLENOL 500 MG PO ×2 (09:10→16:16)
--- NOTE | 2024-11-04 10:52 | CM ---
Addendum entered by Carly Harris 11/04/24 14:19:
Per MD, patient is not being discharged today. [employer] Worker notified of same.
Addendum entered by Carly Harris 11/04/24 11:57:
Per [employer] liaison, Gisela does not qualify for the SNF waiver. CM to speak with patient/family to discuss options for services.
Original Note:
CM following for discharge planning. Therapy recommends SNF. Pt does not have a 3 day qualifying stay for SNF admission. CM contacted [employer] liaison to determine if patient is eligible for [employer] Waiver. Awaiting response to determine options.
--- NOTE | 2024-11-04 10:53 | PTCARENOTE ---
pt c/o 8/10 pain in her right jaw after PRN tylenol, 500 mg. Resident notified. warm compress applied.
[2024-11-04] MEDS: ULTRAM 50 MG PO ×2 (12:14→17:30)
[2024-11-04 15:00] VITALS: BP 192/108
--- NOTE | 2024-11-04 15:19 | PTCARENOTE ---
resident notified of BP trends, pain managed
[2024-11-04] MEDS: LOVENOX 30 MG SC (16:16)
[2024-11-04] MEDS: NORVASC 5 MG PO (17:30)
[2024-11-04 18:40] VITALS: BP 168/101
[2024-11-04 23:15] VITALS: BP 214/118
[2024-11-05] VITALS (7 sets, daily range): BP systolic 142–214; BP diastolic 71–118
[2024-11-05] MEDS: ULTRAM 50 MG PO ×2 (00:50→09:18)
[2024-11-05] MEDS: APRESOLINE 5 MG IV ×3 (00:50→10:16)
[2024-11-05] MEDS: SYNTHROID PO (05:13)
--- NOTE | 2024-11-05 07:17 | W.PN.HOSP.TC ---
Today's Communication/Plan
-
Continue Norvasc for hypertension; added p.o. hydralazine as needed
Continue tramadol for pain
Continue prednisone 60 mg for now
oral surg consult for further evaluation since CT is positive for large right TMJ effusion
Assessment / Plan
Assessment / Plan
74-year-old female presented with concerns of weakness and ear and jaw pain.
#Temporal arteritis/GCA flareup
# Right ear and right TMJ pain
# Right-sided facial swelling
- Visible swelling and pain in the right TMJ region. Tender to touch; visibly less than yesterday
- continue on increased dose of prednisone 60 mg; plan is to at least continue for 1 week before tapering; at home patient is on 6 mg prednisone daily
- Patient on monthly Orencia with last dose on October 26
- Leflunomide 20 mg daily; continue
-- ESR is elevated to 61 initially --- >145---> 96
--CRP initially elevated to 181---> 270--->193---> pending for 11/05
- Tramadol 50 mg every 6H as needed for pain
CT: 11/05/2024 Moderate to severe degenerative changes of the bilateral temporomandibular joints. Large right temporomandibular joint effusion, likely reactive/inflammatory.
-- Discussed with Dr. Whitlock; states unlikely for GCA flare to have TMJ fusion. Recommended evaluation for possible tap.
-- After curbsiding ortho and ent; Consult placed for oral surg for further evaluation
# Hypertension
- Patient not on any antihypertensive at home
- Likely elevated blood pressure in the setting of increased steroid doses and ongoing pain
- Continue Norvasc 5 mg p.o. daily; ctm
- Hydralazine po for as needed
# Weakness
# Failure to thrive
- No signs of infections at this time; no neurological deficit
- pt/ot recommended skilled rehab; patient amenable; prefers [facility]; will check with the case management associate for approval/Auth
# Altered mental status
# Progressive dementia
# TME from above
- Head CT with significant progression of atrophy and leukomalacia
- Overall patient AAO x 3
# Headache
# Known meningiomas from previous imaging
- Patient rates the pain as more of a discomfort rather than pain; resolved mostly
- Head CT with no new acute findings however there is significant progression of atrophy and leukomalacia
- Intermittent per patient
# Acute on chronic hyponatremia
- Continue to monitor; down from 132--- >130--->131(stable)(uses sodium tabs on daily basis at home)
- Continue home sodium chloride 1000 mg tablet daily
- s/p 2 L NS IVF
#History of diverticulitis
- status post hemicolectomy with ileostomy,
# History of peptic ulcer disease
- Continue pantoprazole 40 mg daily
#Hypothyroidism
- Continue levothyroxine 100 mcg daily
# History of hypotension
- Continue to monitor; currently stable
#Chronic pain
- Continue gabapentin 300 mg twice daily
#Tobacco smoking
- Encouraged to quit
Coccyx Stage 2 Pressure Injury, POA
CODE STATUS: Full code
DVT prophylaxis: Lovenox
Dispo to SNF per PT recommendation
Dispo: SNF
Anticipated Discharge: 24 - 48 hours
Subjective/Interval History
-
Date of Service: November 05, 2024
Seen and examined at bedside. Patient continues to have right jaw and pain in front of the right ear. Visible swelling. Patient was able to sleep last night after using tramadol which helped with the pain
Objective Data
-
Labs:
Laboratory Results
11/05/24
06:00
WBC Pending
Hgb Pending
Hct Pending
Plt Count Pending
Sodium Pending
Potassium Pending
Chloride Pending
Carbon Dioxide Pending
BUN Pending
Creatinine Pending
Glucose Pending
Calcium Pending
Vital Signs:
Vital Signs
Temp Pulse Resp BP Pulse Ox
98.4 F 69 18 142/74 96
11/04/24 23:15 11/05/24 05:13 11/04/24 23:15 11/05/24 05:13 11/04/24 23:15
I&O
11/04/24 11/05/24 11/06/24
06:59 06:59 06:59
Intake Total 1560 / 1560 720 / 720
Output Total
Balance 1560 / 1560 718 / 718
Review of Systems
-
History Source: Patient
All other systems: Reviewed and negative (Except as documented)
Musculoskeletal: Reports Other (Right jaw pain in front of the right ear)
Physical Exam
-
General: Well Developed and Well Nourished
HEENT: Normocephalic, Atraumatic and Other (Visible swelling near the right TMJ. Tender to touch)
Respiratory: Clear to Auscultation and Non Labored Respirations
Cardiac: Regular Rhythm and S1/S2
GI: Soft and Ostomy (With brownish stools)
Musculoskeletal: Other (Ulnar deviation of the hands.)
Skin: Warm and Dry
Neuro: Awake, Alert and Oriented
Psych: Calm
Data Reviewed
-
Labs: Labs Reviewed by me, Discussed with Physician and Discussed with Patient
[2024-11-05] MEDS: FOLVITE 1 MG PO (09:13)
[2024-11-05] MEDS: OSCAL 500 + D 500 MG PO ×2 (09:13→15:44)
[2024-11-05] MEDS: VITAMIN B-12 500 MCG PO (09:13)
[2024-11-05] MEDS: DELTASONE 60 MG PO (09:13)
[2024-11-05] MEDS: SODIUM CHLORIDE 1 GRAM PO (09:13)
[2024-11-05] MEDS: MAG-TAB SR 84 MG PO (09:13)
[2024-11-05] MEDS: NORVASC 5 MG PO (09:14)
[2024-11-05] MEDS: PROTONIX 40 MG PO (09:14)
[2024-11-05] MEDS: NEURONTIN 300 MG PO ×2 (09:14→19:29)
[2024-11-05 11:10] LABS: Hematocrit 38.0 % (37.0-47.0); Hemoglobin 12.6 g/dL (12.0-16.0); Mean Corp Hgb Conc. 33.2 g/dL (33.0-37.0); Mean Corpuscular Volume 88.8 fL (81.0-99.0); Platelet Count 285 10^3/uL (130-400); Red Cell Dist. Width 16.6 % (11.5-14.5)
[2024-11-05 11:27] LABS: Blood Urea Nitrogen 19 mg/dl (7-17); Calcium 9.9 mg/dl (8.4-10.2); Carbon Dioxide 20 mmol/L (22-30); Chloride 101 mmol/L (98-107); Estimated Creatinine Clearance 61 ml/min; Glucose 110 mg/dl (70-99); Potassium 4.2 mmol/L (3.5-5.1); Sodium 131 mmol/L (135-145); eGFR > 60.00
[2024-11-05 12:38] LABS: C-Reactive Protein 160.70 mg/L (0.0-10.00)
[2024-11-05] MEDS: NSS 1000 IV (13:19)
--- NOTE | 2024-11-05 13:25 | W.PN.UPDATE ---
Update Note
Progress Note Update
Case was Discussed with Ortho, ENT, Oral surgery and IR. Suggestion was made for [facility] transfer. Will initiate the transfer given the need of inpatient rheum and possible need for TMJ effusion drainage. Patient and her updated; agree with the
plan.
--- NOTE | 2024-11-05 14:49 | W.DCSUMMARY ---
Discharge Summary
Discharge Data
Date of Admission: 11/04/24
Date of Discharge: 11/14/24
-
Pending Results: No
Hospital Course
Discharging Physician : Efren Parks MD ; Shorty Sheldon DO
Disposition : [facility]
Primary care physician : Peter Keenan
Principal Discharge diagnosis : GCA flareup complicated with right temporomandibular joint effusion
Chronic Discharge diagnosis : History of peptic ulcer disease, hypothyroidism, hypertension, smoking, diverticular disease with colostomy, history of temporal arthritis on chronic steroid, history of memory loss, history of GI bleed, hiatal hernia
Hospital Course : This is a 74-year-old female with multiple medical conditions presenting to the emergency department with complaints of right jaw pain, right ear pain and weakness.
1-Temporal arteritis/GCA flareup; Right ear and right TMJ pain
Initially when the patient presented she did not had any visible swelling however she was mildly tender on the right TMJ. Next day in the hospital she developed swelling which was very tender and after discussing with outpatient roller leveler operator her
prednisone dose was increased to 60 mg from 6 mg. Which helped with the swelling to an extent however she continues to experience intermittent pain especially with eating and preferring not to eat. IV fluids were given to the patient. Periodic
ESR and CRP were monitor which showed a downtrend. Given the ongoing pain a CT was obtained which showed a large right TMJ effusion. Case was discussed with ortho, ENT, oral surgery and IR. And decision was made to transfer to [facility]
[place]. Transfers are initiated and patient was accepted under the service of Dr. Fisher. Overall her CRP dropped from >270 to 160 and ESR dropped from >145 to 96.
2-Hypertension
During her hospital stay her blood pressure remained elevated even though she does not take any medication for hypertension at home. Likely could be due to high dose of prednisone as well as ongoing pain. She was started on Norvasc 5 mg p.o. daily
and received few doses of hydralazine IV as needed.
3-Weakness; Failure to thrive
There was no signs of any infections. No neurological deficit. CT head was clear. Physical therapist recommended skilled rehab patient amenable.
4-Altered mental status; Progressive dementia; TME from above
Overall patient AAO x 3. Likely progression of dementia
5-Headache; intermittent
Known meningiomas from previous imaging
Head CT with no new acute findings however there is significant progression of atrophy and leukomalacia
6-Acute on chronic hyponatremia
Her sodium was found to be 130. She received IV normal saline IV fluid. Sodium seems to be stable around 131. Asymptomatic.
Chronic problems:
History of diverticulitis ;status post hemicolectomy with ileostomy,
History of peptic ulcer disease - on pantoprazole
Hypothyroidism - levothyroxine 100 mcg daily
Chronic pain - Continue gabapentin 300 mg twice daily
Tobacco smoking - Encouraged to quit
Coccyx Stage 2 Pressure Injury, POA
Important imaging findings :
CT Head W/o Iv Contrast:
Two small calcified meningiomas as described. Rounded calcification of the falx, slightly increasing since 2007 examination. This could either represent small meningioma or slight progression of falx calcification.
Moderate atrophy. Moderate to severe leukomalacia. Atrophy and leukomalacia have significantly progressed 2007 examination.
No evidence for acute intracranial hemorrhage
CT Neck With Iv Contrast: Moderate to severe degenerative changes of the bilateral temporomandibular joints. Large right temporomandibular joint effusion, likely reactive/inflammatory.
Severe multilevel degenerative changes of the cervical spine.
Severe right shoulder bursitis
Discharge Plan
-
Patient Disposition: Acute Care Hospital
Condition: Fair
Discharge Orders:
Discharge Patient (As Directed); Ordered 11/11/24
Ordered By: Efren Parks
Discharge Date and Time
Discharge Date/Time: 11/11/24 22:05
Print Language: HEBREW
[2024-11-05] MEDS: NON-FORMULARY ITEM 20 MG PO (15:45)
[2024-11-05] MEDS: LOVENOX 30 MG SC (16:56)
[2024-11-05] MEDS: TYLENOL 500 MG PO (19:29)
[2024-11-05] MEDS: OSCAL 500 + D PO (20:53)
[2024-11-05] MEDS: APRESOLINE 50 MG PO (23:47)
[2024-11-06] MEDS: ULTRAM 50 MG PO ×3 (00:59→17:41)
[2024-11-06 01:15] VITALS: BP 162/74
[2024-11-06] MEDS: NSS 1000 IV ×2 (03:39→19:37)
[2024-11-06] MEDS: SYNTHROID 100 MCG PO (06:13)
[2024-11-06] MEDS: TYLENOL 500 MG PO ×2 (06:16→17:39)
[2024-11-06 07:00] VITALS: BP 175/89
[2024-11-06 07:42] LABS: Hematocrit 34.8 % (37.0-47.0); Hemoglobin 11.7 g/dL (12.0-16.0); Mean Corp Hgb Conc. 33.6 g/dL (33.0-37.0); Mean Corpuscular Volume 87.4 fL (81.0-99.0); Nucleated Red Blood Cells % 0 %; Platelet Count 288 10^3/uL (130-400); Red Cell Dist. Width 16.5 % (11.5-14.5)
--- NOTE | 2024-11-06 07:48 | W.PN.HOSP.TC ---
Addendum entered and electronically signed by Smita Herrera MD 11/06/24 12:01:
I saw and evaluated the patient. I reviewed the resident�s note and agree with findings and plan as documented in the resident�s note.
A/P:
# Right-sided facial swelling with Right ear and right TMJ pain
# Temporal arteritis/GCA flareup
- Visible swelling and pain in the right TMJ region
- continue increased dose of prednisone 60 mg; plan is to at least continue for 1 week before tapering; at home patient is on 6 mg prednisone daily
- Patient on monthly Orencia with last dose on October 26
- Leflunomide 20 mg daily; continue
- cont to monitor ESR and CRP, remain elevated today
- Tramadol 50 mg every 6H as needed for pain
- plan for transfer to [place] for R facial drainage
Original Note:
Today's Communication/Plan
-
[facility] at the service of Dr. Fisher
Assessment / Plan
Assessment / Plan
74-year-old female presented with concerns of weakness and ear and jaw pain.
#Temporal arteritis/GCA flareup
# Right ear and right TMJ pain
# Right-sided facial swelling
- Visible swelling and pain in the right TMJ region. Tender to touch; visibly less than yesterday
- continue on increased dose of prednisone 60 mg; plan is to at least continue for 1 week before tapering; at home patient is on 6 mg prednisone daily
- Patient on monthly Orencia with last dose on October 26
- Leflunomide 20 mg daily; continue
-- ESR is elevated to 61 initially --- >145---> 96-->133
--CRP initially elevated to 181---> 270--->193---> 160-->218
- Tramadol 50 mg every 6H as needed for pain
CT: 11/05/2024 Moderate to severe degenerative changes of the bilateral temporomandibular joints. Large right temporomandibular joint effusion, likely reactive/inflammatory.
-- Discussed with Dr. Whitlock; states unlikely for GCA flare to have TMJ fusion. Recommended evaluation for possible drainage
-- Case was Discussed with Ortho, ENT, Oral surgery and IR. Suggestion was made for [facility]. Transfer was initiated and patient was accepted and the service of Dr. Fisher; awaiting bed availability.
# Hypertension
- Patient not on any antihypertensive at home
- Likely elevated blood pressure in the setting of increased steroid doses and ongoing pain
- Continue Norvasc 5 mg p.o. daily; ctm
- Hydralazine po for as needed
# Weakness
# Failure to thrive
- No signs of infections at this time; no neurological deficit
- pt/ot recommended skilled rehab; patient amenable; prefers [facility]; will check with the assistant case manager for approval/Auth
# Altered mental status
# Progressive dementia
# TME from above
- Head CT with significant progression of atrophy and leukomalacia
- Overall patient AAO x 3
# Headache
# Known meningiomas from previous imaging
- Patient rates the pain as more of a discomfort rather than pain; resolved mostly
- Head CT with no new acute findings however there is significant progression of atrophy and leukomalacia
- Intermittent per patient
# Acute on chronic hyponatremia
- Continue to monitor; down from 132--- >130--->131(stable)(uses sodium tabs on daily basis at home)
- Continue home sodium chloride 1000 mg tablet daily
- s/p 2 L NS IVF
#History of diverticulitis
- status post hemicolectomy with ileostomy,
# History of peptic ulcer disease
- Continue pantoprazole 40 mg daily
#Hypothyroidism
- Continue levothyroxine 100 mcg daily
# History of hypotension
- Continue to monitor; currently stable
#Chronic pain
- Continue gabapentin 300 mg twice daily
#Tobacco smoking
- Encouraged to quit
Coccyx Stage 2 Pressure Injury, POA
CODE STATUS: Full code
DVT prophylaxis: Lovenox
Dispo to SNF per PT recommendation
Dispo: SNF
Anticipated Discharge: Within 24 hours
Subjective/Interval History
-
Date of Service: November 06, 2024
Seen and examined at bedside. Patient offers no new complaints. Reports that the swelling is still there however the pain is slightly improved. Blood pressure slightly elevated however improved than before. Other vitals remained stable.
Objective Data
-
Labs:
Laboratory Results
11/06/24
07:35
WBC 8.8
Hgb 11.7 L
Hct 34.8 L
Plt Count 288
Sodium Pending
Potassium Pending
Chloride Pending
Carbon Dioxide Pending
BUN Pending
Creatinine Pending
Glucose Pending
Calcium Pending
Vital Signs:
Vital Signs
Temp Pulse Resp BP Pulse Ox
98.0 F 81 17 175/89 98
11/06/24 07:00 11/06/24 07:00 11/06/24 07:00 11/06/24 07:00 11/06/24 07:00
I&O
11/05/24 11/06/24 11/07/24
06:59 06:59 06:59
Intake Total 720 / 720
Output Total 2 / 2
Balance 718 / 718
Review of Systems
-
History Source: Patient
All other systems: Reviewed and negative (Except as documented)
Musculoskeletal: Reports Other (Right jaw pain in front of the right ear)
Physical Exam
-
General: Well Developed and Well Nourished
HEENT: Normocephalic, Atraumatic and Other (Visible swelling near the right TMJ. Tender to touch)
Respiratory: Clear to Auscultation and Non Labored Respirations
Cardiac: Regular Rhythm and S1/S2
GI: Soft and Ostomy (With brownish stools)
Musculoskeletal: Other (Ulnar deviation of the hands.)
Skin: Warm and Dry
Neuro: Awake, Alert and Oriented
Psych: Calm
Data Reviewed
-
Labs: Labs Reviewed by me, Discussed with Physician and Discussed with Family
[2024-11-06] MEDS: NEURONTIN 300 MG PO ×2 (08:00→20:51)
[2024-11-06] MEDS: NON-FORMULARY ITEM 20 MG PO (08:04)
[2024-11-06] MEDS: DELTASONE 60 MG PO (08:05)
[2024-11-06 08:21] LABS: Blood Urea Nitrogen 20 mg/dl (7-17); Calcium 9.7 mg/dl (8.4-10.2); Carbon Dioxide 20 mmol/L (22-30); Chloride 101 mmol/L (98-107); Estimated Creatinine Clearance 61 ml/min; Glucose 83 mg/dl (70-99); Potassium 3.9 mmol/L (3.5-5.1); Sodium 128 mmol/L (135-145); eGFR > 60.00
[2024-11-06] MEDS: NORVASC 5 MG PO (08:22)
[2024-11-06 08:52] LABS: C-Reactive Protein 218.80 mg/L (0.0-10.00)
[2024-11-06 09:17] VITALS: BP 167/84; PULSE 72; O2SAT 97
[2024-11-06] MEDS: PROTONIX 40 MG PO (11:34)
[2024-11-06] MEDS: VITAMIN B-12 PO (11:34)
[2024-11-06] MEDS: FOLVITE PO (11:34)
[2024-11-06] MEDS: MAG-TAB SR PO (11:34)
[2024-11-06] MEDS: OSCAL 500 + D PO ×2 (11:34→15:30)
[2024-11-06] MEDS: SODIUM CHLORIDE 1 GRAM PO (11:34)
[2024-11-06 15:00] VITALS: BP 179/93
[2024-11-06] MEDS: APRESOLINE 50 MG PO (15:28)
[2024-11-06] MEDS: LOVENOX 30 MG SC (17:34)
[2024-11-06 17:37] VITALS: BP 168/85
[2024-11-06] MEDS: OSCAL 500 + D 500 MG PO (22:37)
[2024-11-06 23:00] VITALS: BP 153/82
[2024-11-07] MEDS: SYNTHROID 100 MCG PO (05:46)
[2024-11-07] MEDS: ULTRAM 50 MG PO ×2 (05:51→12:12)
[2024-11-07 07:00] VITALS: BP 182/100
--- NOTE | 2024-11-07 07:31 | W.PN.HOSP.TC ---
Addendum entered and electronically signed by Roger Goel MD 11/07/24 22:51:
Attending Addendum-I saw and evaluated the patient. I reviewed the resident�s note and agree with findings and plan as documented in the resident�s note. Sub: patient states unable to open jaw wide open. cotnues to have swelling in rigth TMJ. TTP.
No vision changes. No fevers chills. Full 12 point ROS reviewed and negative except as documented Exam- vitals reviewed in EMR GEN-NAD HEENT right sided facial swelling, tenderness to palp, TA pulse absent heart RRR lungs clear abd soft ostomy
present with brown stool LE no edema Neuro AAO x 2
Plan:
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
- resolving
- head ct-Moderate atrophy. Moderate to severe leukomalacia, no bleed
- likely in part progression of dementia as well
# GCA flare
- CRP trending
- repeat CRP in am
- cont prednisone 60mg daily- eventual start to taper in @ 2 weeks
- d/w rheum - curbside
- pain control
# Right sided Facial swelling
-CT Face 11/05 -Moderate to severe degenerative changes of the bilateral temporomandibular joints. Large right temporomandibular joint effusion, likely reactive/inflammatory.
-transfer to [place] for drainage and cx
-unclear etiology
# Hyponatremia
- hypovolemic
- encourage PO start IVF
- cont salt tabs
- recheck BMP in am
# HTN
- exacerbated by pain and steroids but likely chronic
- cont new norvasc
# Coccyx stage 2 PI- POA - wound care
# RA- cont abatacept as OP and leflunomide
# Tobacco abuse- advised to quit
# PN- cont gabapentin
# Lumbar stenosis and comp fx- s/p stimulator
# GERD- cont Protonix
# Hypothyroidism-cont levothyroxine
# h/o diverticular dz- has ostomy - cont ostomy care
code FULL d/w POA
Dispo - transfer to [place] when bed avail
DVTp- cont lovenox
Time spent coordinating care, review of plan of care with resident, personally reviewed records in EMR, med rec, consults, notes, labs, radiology, d/w nursing and POA� 51 mins
Original Note:
Today's Communication/Plan
-
[facility] at the service of Dr. Fisher
Assessment / Plan
Assessment / Plan
74-year-old female presented with concerns of weakness and ear and jaw pain.
#Temporal arteritis/GCA flareup
# Right ear and right TMJ pain
# Right-sided facial swelling
- Visible swelling and pain in the right TMJ region. Tender to touch; visibly less than yesterday
- continue on increased dose of prednisone 60 mg; plan is to at least continue for 1 week before tapering; at home patient is on 6 mg prednisone daily
- Patient on monthly Orencia with last dose on October 26
- Leflunomide 20 mg daily; continue
-- ESR is elevated to 61 initially --- >145---> 96-->133---99
--CRP initially elevated to 181---> 270--->193---> 160-->218--- 169.3
- Tramadol 235 mg every 4H as needed for pain; has been put in the patient gets very drowsy after getting the 50 mg tramadol also does not last [address]: 11/05/2024 Moderate to severe degenerative changes of the bilateral temporomandibular joints. Large right temporomandibular joint effusion, likely reactive/inflammatory.
-- Discussed with Dr. Whitlock; states unlikely for GCA flare to have TMJ fusion. Recommended evaluation for possible drainage
-- Case was Discussed with Ortho, ENT, Oral surgery and IR. Suggestion was made for [place] transfer. Transfer was initiated and patient was accepted and the service of Dr. Fisher; awaiting bed availability.
# Hypertension
- Patient not on any antihypertensive at home
- Likely elevated blood pressure in the setting of increased steroid doses and ongoing pain
- Continue Norvasc 5 mg p.o. daily; ctm
- Hydralazine po for as needed
# Weakness
# Failure to thrive
- No signs of infections at this time; no neurological deficit
- pt/ot recommended skilled rehab; patient amenable; prefers [facility]; will check with the outpatient case manager for approval/Auth
# Altered mental status
# Progressive dementia
# TME from above
- Head CT with significant progression of atrophy and leukomalacia
- Overall patient AAO x 3
# Headache
# Known meningiomas from previous imaging
- Patient rates the pain as more of a discomfort rather than pain; resolved mostly
- Head CT with no new acute findings however there is significant progression of atrophy and leukomalacia
- Intermittent per patient
# Acute on chronic hyponatremia
-Patient not eating or drinking much due to the jaw pain.
- Continue to monitor; down from 128---129(stable)(uses sodium tabs on daily basis at home)
- Continue home sodium chloride 1000 mg tablet daily
-Maintain gentle IV fluids.
#History of diverticulitis
- status post hemicolectomy with ileostomy,
# History of peptic ulcer disease
- Continue pantoprazole 40 mg daily
#Hypothyroidism
- Continue levothyroxine 100 mcg daily
# History of hypotension
- Continue to monitor; currently stable
#Chronic pain
- Continue gabapentin 300 mg twice daily
#Tobacco smoking
- Encouraged to quit
Coccyx Stage 2 Pressure Injury, POA
CODE STATUS: Full code
DVT prophylaxis: Lovenox
Dispo to SNF per PT recommendation
Dispo: [facility]
Anticipated Discharge: Within 24 hours
Subjective/Interval History
-
Date of Service: November 07, 2024
Seen and examined at bedside. continues to experience pain requiring tramadol. visible swelling in front of right ear.
Objective Data
-
Labs:
Laboratory Results
11/07/24
07:28
WBC Pending
Hgb Pending
Hct Pending
Plt Count Pending
Sodium Pending
Potassium Pending
Chloride Pending
Carbon Dioxide Pending
BUN Pending
Creatinine Pending
Glucose Pending
Calcium Pending
Vital Signs:
Vital Signs
Temp Pulse Resp BP Pulse Ox
97.8 F 77 19 182/100 96
11/07/24 07:00 11/07/24 07:00 11/07/24 07:00 11/07/24 07:00 11/07/24 07:00
I&O
11/06/24 11/07/24 11/08/24
06:59 06:59 06:59
Intake Total 660 / 660 720 / 720
Output Total 50 / 50
Balance 660 / 660 670 / 670
Review of Systems
-
History Source: Patient
All other systems: Reviewed and negative (Except as documented)
Musculoskeletal: Reports Other (Right jaw pain in front of the right ear)
Physical Exam
-
General: Well Developed and Well Nourished
HEENT: Normocephalic, Atraumatic and Other (Visible swelling near the right TMJ. Tender to touch)
Respiratory: Clear to Auscultation and Non Labored Respirations
Cardiac: Regular Rhythm and S1/S2
GI: Soft and Ostomy (With brownish stools)
Musculoskeletal: Other (Ulnar deviation of the hands.)
Skin: Warm and Dry
Neuro: Awake, Alert and Oriented
Psych: Calm
Data Reviewed
-
Labs: Labs Reviewed by me, Discussed with Physician and Discussed with Patient
[2024-11-07] MEDS: NON-FORMULARY ITEM 20 MG PO (08:09)
[2024-11-07] MEDS: DELTASONE 60 MG PO (08:10)
[2024-11-07] MEDS: NEURONTIN 300 MG PO ×2 (08:10→21:52)
[2024-11-07] MEDS: TYLENOL 500 MG PO (08:10)
[2024-11-07] MEDS: NORVASC 5 MG PO (08:11)
[2024-11-07 09:11] LABS: Hematocrit 37.3 % (37.0-47.0); Hemoglobin 12.4 g/dL (12.0-16.0); Mean Corp Hgb Conc. 33.2 g/dL (33.0-37.0); Mean Corpuscular Volume 88.2 fL (81.0-99.0); Nucleated Red Blood Cells % 0 %; Platelet Count 321 10^3/uL (130-400); Red Cell Dist. Width 16.4 % (11.5-14.5)
[2024-11-07 09:32] LABS: Blood Urea Nitrogen 18 mg/dl (7-17); Calcium 9.5 mg/dl (8.4-10.2); Carbon Dioxide 21 mmol/L (22-30); Chloride 100 mmol/L (98-107); Estimated Creatinine Clearance 61 ml/min; Glucose 102 mg/dl (70-99); Potassium 3.9 mmol/L (3.5-5.1); Sodium 129 mmol/L (135-145); eGFR > 60.00
[2024-11-07 09:48] LABS: C-Reactive Protein 169.30 mg/L (0.0-10.00)
[2024-11-07] MEDS: PROTONIX 40 MG PO (11:52)
[2024-11-07] MEDS: MAG-TAB SR 84 MG PO (11:52)
[2024-11-07] MEDS: SODIUM CHLORIDE 1 GRAM PO (11:52)
[2024-11-07 11:56] VITALS: BP 144/80
[2024-11-07] MEDS: OSCAL 500 + D PO (11:57)
[2024-11-07] MEDS: VITAMIN B-12 PO (11:57)
[2024-11-07] MEDS: FOLVITE PO (11:57)
[2024-11-07 15:00] VITALS: BP 184/96
--- NOTE | 2024-11-07 15:07 | CM ---
Spoke with Aviva at [facility] line [phone] Fisher has accepted patient for transfer.
Bed is not available yet. She said she has nursing desk number will call when bed ready and with address.
Pt will be transported [facility] .
PLAN To [place] when bed ready
[2024-11-07] MEDS: NSS 1000 IV (15:09)
[2024-11-07] MEDS: APRESOLINE 50 MG PO ×2 (15:47→23:16)
[2024-11-07] MEDS: OSCAL 500 + D 500 MG PO ×2 (15:48→21:52)
[2024-11-07] MEDS: LOVENOX 30 MG SC (17:25)
[2024-11-07 17:29] VITALS: BP 155/83
[2024-11-07] MEDS: ULTRAM 25 MG PO (21:59)
[2024-11-07 23:32] VITALS: BP 189/103
[2024-11-07 23:41] VITALS: BP 180/90
[2024-11-08 00:22] VITALS: BP 140/72
[2024-11-08] MEDS: SYNTHROID 100 MCG PO (05:15)
[2024-11-08] MEDS: ULTRAM 25 MG PO ×2 (05:17→09:31)
--- NOTE | 2024-11-08 07:06 | W.PN.HOSP.TC ---
Addendum entered and electronically signed by Roger Goel MD 11/08/24 23:17:
Attending Addendum-I saw and evaluated the patient. I reviewed the resident�s note and agree with findings and plan as documented in the resident�s note. Sub: called to bedside by threatening to leave ama. 'look at her why isnt she being
taken to [place] now? ill drive to the ED and take her myself' Patient sleeping comfortably, easily arousable. 'yeah ill go to [place] im a lot of pain' No vision changes. No fevers chills. Full 12 point ROS reviewed and negative except as documented
Exam- vitals reviewed in EMR GEN-NAD HEENT right sided facial swelling, tenderness to palp, TA pulse absent heart RRR lungs clear abd soft ostomy present with brown stool LE no edema Neuro AAO x 2
Plan:
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
- resolving
- head ct-Moderate atrophy. Moderate to severe leukomalacia, no bleed
- underlying dementia
# GCA flare
- CRP trending down
- repeat CRP in am
- cont prednisone 60mg daily- eventual start to taper in @ 2 weeks
- d/w rheum - curbside
- pain control
- stat Toradol x 1
# Right sided Facial swelling
-CT Face 11/05 -Moderate to severe degenerative changes of the bilateral temporomandibular joints. Large right temporomandibular joint effusion, likely reactive/inflammatory.
-transfer to [place] for drainage and cx
-unclear etiology
-pain control cont tramadol and start toradol prn
# Hyponatremia
- hypovolemic
- encourage PO- cont IVF for now
- cont salt tabs
- recheck BMP in am
# HTN
- exacerbated by pain and steroids but likely chronic
- cont new norvasc
# Coccyx stage 2 PI- POA - wound care
# RA- cont abatacept as OP and leflunomide
# Tobacco abuse- advised to quit
# PN- cont gabapentin
# Lumbar stenosis and comp fx- s/p stimulator
# GERD- cont Protonix
# Hypothyroidism-cont levothyroxine
# h/o diverticular dz- has ostomy - cont ostomy care
code FULL d/w POA
Dispo - transfer to [place] when bed avail
DVTp- cont lovenox
Time spent coordinating care, review of plan of care with resident, personally reviewed records in EMR, med rec, consults, notes, labs, radiology, d/w nursing and POA� 52 mins
Original Note:
Today's Communication/Plan
-
[facility]; was accepted at the service of Dr. Fisher
Assessment / Plan
Assessment / Plan
74-year-old female presented with concerns of weakness and ear and jaw pain.
#Temporal arteritis/GCA flareup
# Right ear and right TMJ pain
# Right-sided facial swelling
- Visible swelling and pain in the right TMJ region. Tender to touch; visibly less than yesterday
- continue on increased dose of prednisone 60 mg; plan is to at least continue for 1 week before tapering; at home patient is on 6 mg prednisone daily
- Patient on monthly Orencia with last dose on October 26
- Leflunomide 20 mg daily; continue
-- ESR is elevated to 61 initially --- >145---> 96-->133---99--99
--CRP initially elevated to 181---> 270--->193---> 160-->218--- 169.3--145
- Tramadol 50 mg every 4H as needed for pain; 1 dose of iv toradol
CT: 11/05/2024 Moderate to severe degenerative changes of the bilateral temporomandibular joints. Large right temporomandibular joint effusion, likely reactive/inflammatory.
-- Discussed with Dr. Whitlock; states unlikely for GCA flare to have TMJ fusion. Recommended evaluation for possible drainage
-- Case was Discussed with Ortho, ENT, Oral surgery and IR. Suggestion was made for [facility] transfer. Transfer was initiated and patient was accepted and the service of Dr. Fisher; awaiting bed availability.
-- Patient and her are adamant on leaving and driving themselves to patient [place]; informed that we are waiting for bed availability all other documents already
# Subjective shortness of breath
- Physical exam with clear to auscultation
- chest x-ray with no acute disease of the chest
- Patient says her pain increased in intensity and she is waiting for tramadol
# Hypertension
- Patient not on any antihypertensive at home
- Likely elevated blood pressure in the setting of increased steroid doses and ongoing pain
- Continue Norvasc 5 mg p.o. daily; ctm
- Hydralazine po for as needed
# Weakness
# Failure to thrive
- No signs of infections at this time; no neurological deficit
- pt/ot recommended skilled rehab; patient amenable; prefers [facility]; will check with the top case assembler for approval/Auth
# Altered mental status
# Progressive dementia
# TME from above
- Head CT with significant progression of atrophy and leukomalacia
- Overall patient AAO x 3
# Headache
# Known meningiomas from previous imaging
- Patient rates the pain as more of a discomfort rather than pain; resolved mostly
- Head CT with no new acute findings however there is significant progression of atrophy and leukomalacia
- Intermittent per patient
# Acute on chronic hyponatremia
-Patient not eating or drinking much due to the jaw pain.
- Continue to monitor; down from 128---129(stable)(uses sodium tabs on daily basis at home)
- Continue home sodium chloride 1000 mg tablet daily
-Maintain gentle IV fluids.
#History of diverticulitis
- status post hemicolectomy with ileostomy,
# History of peptic ulcer disease
- Continue pantoprazole 40 mg daily
#Hypothyroidism
- Continue levothyroxine 100 mcg daily
# History of hypotension
- Continue to monitor; currently stable
#Chronic pain
- Continue gabapentin 300 mg twice daily
#Tobacco smoking
- Encouraged to quit
Coccyx Stage 2 Pressure Injury, POA
CODE STATUS: Full code
DVT prophylaxis: Lovenox
Dispo to SNF per PT recommendation
Dispo: [facility]
Anticipated Discharge: Within 24 hours
Subjective/Interval History
-
Date of Service: November 08, 2024
Seen and examined at bedside. Patient continues to experience right jaw pain reports that the lower dose of tramadol is not providing adequate relief. And she wants to go to [place] herself. Informed her that we are waiting for the bed
availability; she remained adamant of leaving and driving herself.
Objective Data
-
Labs:
Last Resulted Lab Results
11/08/24 07:23
Vital Signs:
Vital Signs
Temp Pulse Resp BP Pulse Ox
98.8 F 77 16 140/72 98
11/07/24 23:32 11/07/24 23:32 11/07/24 23:32 11/08/24 00:22 11/07/24 23:32
I&O
11/07/24 11/08/24 11/09/24
06:59 06:59 06:59
Intake Total 660 / 660 1800 / 1800
Output Total 350 / 350
Balance 660 / 660 1450 / 1450
Review of Systems
-
History Source: Patient
All other systems: Reviewed and negative (Except as documented)
Musculoskeletal: Reports Other (Right jaw pain in front of the right ear)
Physical Exam
-
General: Well Developed and Well Nourished
HEENT: Normocephalic, Atraumatic and Other (Visible swelling near the right TMJ. Tender to touch)
Respiratory: Clear to Auscultation, Non Labored Respirations and Other (Patient reports subjective trouble breathing); Negative Wheezes
Cardiac: Regular Rhythm and S1/S2
GI: Soft and Ostomy (With brownish stools)
Musculoskeletal: Other (Ulnar deviation of the hands.)
Skin: Warm and Dry
Neuro: Awake, Alert and Oriented
Psych: Agitated
Data Reviewed
-
Labs: Labs Reviewed by me, Discussed with Physician, Discussed with Patient and Discussed with Family
[2024-11-08 07:45] VITALS: BP 178/97
[2024-11-08 08:08] LABS: Hematocrit 41.0 % (37.0-47.0); Hemoglobin 13.6 g/dL (12.0-16.0); Mean Corp Hgb Conc. 33.2 g/dL (33.0-37.0); Mean Corpuscular Volume 88.9 fL (81.0-99.0); Nucleated Red Blood Cells % 0 %; Platelet Count 348 10^3/uL (130-400); Red Cell Dist. Width 16.4 % (11.5-14.5)
[2024-11-08] MEDS: FOLVITE PO (08:53)
[2024-11-08] MEDS: DELTASONE 60 MG PO (08:54)
[2024-11-08] MEDS: NEURONTIN 300 MG PO ×2 (08:54→20:53)
[2024-11-08] MEDS: NORVASC 5 MG PO (08:54)
[2024-11-08] MEDS: VITAMIN B-12 PO (08:55)
[2024-11-08] MEDS: OSCAL 500 + D PO ×2 (08:55→17:11)
[2024-11-08] MEDS: PROTONIX 40 MG PO (08:56)
[2024-11-08 08:58] LABS: Blood Urea Nitrogen 18 mg/dl (7-17); Calcium 9.2 mg/dl (8.4-10.2); Carbon Dioxide 23 mmol/L (22-30); Chloride 98 mmol/L (98-107); Estimated Creatinine Clearance 61 ml/min; Glucose 70 mg/dl (70-99); Potassium 4.2 mmol/L (3.5-5.1); Sodium 128 mmol/L (135-145); eGFR > 60.00
[2024-11-08] MEDS: TYLENOL 500 MG PO (08:59)
[2024-11-08] MEDS: NSS 1000 IV (09:37)
[2024-11-08] MEDS: TORADOL 15 MG IV ×3 (10:13→23:39)
[2024-11-08 10:49] LABS: C-Reactive Protein 145.90 mg/L (0.0-10.00)
--- NOTE | 2024-11-08 10:58 | CM ---
Spoke with Ruth at [facility] line [phone] Kamron Fisher has accepted patient for transfer.
Bed is not available yet. She said she has nursing desk number will call when bed ready and with address.
Pt will be transported [facility] .
PLAN To [facility] when bed ready
[2024-11-08] MEDS: ULTRAM 50 MG PO (14:02)
[2024-11-08] MEDS: NON-FORMULARY ITEM 20 MG PO (14:02)
[2024-11-08] MEDS: SODIUM CHLORIDE 1 GRAM PO (14:03)
[2024-11-08] MEDS: MAG-TAB SR 84 MG PO (14:06)
[2024-11-08 15:15] VITALS: BP 136/75; PULSE 71
--- NOTE | 2024-11-08 15:36 | PTCARENOTE ---
pt continues with pain in right jaw area (TMJ), tender to touch, swelling. lower dose Ultram ineffective for pain. Ultram increased to 50mgs and one time dose of Toradol 15mgs IV administered and patient was able to actually fall asleep for a
short time. Also, c/o trouble breathing this am, though vss, lungs clear, no sob, did expectorate large amount of white mucous and verbalize that she had increased phlegm with coughing. portable CXR was done and showed no acute disease per report.
awaiting transfer to [facility] when bed available and advised patient to wait for bed but she is adament that if it doesn't happen soon, she may sign out AMA and have her drive her there. I did explain to her with Dr. Preciado that was not a good
idea and that she would have to go through ER and may have to wait for bed still and would still have to wait for procedure to be done, will continue to monitor.
[2024-11-08 15:43] VITALS: BP 131/70; BP 136/75; PULSE 71
[2024-11-08 15:44] VITALS: BP 134/67
[2024-11-08] MEDS: LOVENOX 30 MG SC (17:25)
--- NOTE | 2024-11-08 18:44 | PTCARENOTE ---
patient's changed her ileostomy pouch
[2024-11-08] MEDS: OSCAL 500 + D 500 MG PO (21:00)
[2024-11-09 00:07] VITALS: BP 172/93
[2024-11-09] MEDS: SYNTHROID 100 MCG PO (06:27)
[2024-11-09 06:48] LABS: Blood Urea Nitrogen 19 mg/dl (7-17); Calcium 9.8 mg/dl (8.4-10.2); Carbon Dioxide 23 mmol/L (22-30); Chloride 102 mmol/L (98-107); Estimated Creatinine Clearance 52 ml/min; Glucose 76 mg/dl (70-99); Potassium 4.6 mmol/L (3.5-5.1); Sodium 132 mmol/L (135-145); eGFR > 60.00
[2024-11-09 07:00] VITALS: BP 192/82
[2024-11-09 07:09] LABS: C-Reactive Protein 212.00 mg/L (0.0-10.00)
[2024-11-09 07:10] LABS: Hematocrit 41.6 % (37.0-47.0); Hemoglobin 13.4 g/dL (12.0-16.0); Mean Corp Hgb Conc. 32.2 g/dL (33.0-37.0); Mean Corpuscular Volume 89.8 fL (81.0-99.0); Red Cell Dist. Width 16.3 % (11.5-14.5)
[2024-11-09 07:48] LABS: Absolute Neutrophils -Man Diff 5.9 10^3/uL (1.4-6.5)
[2024-11-09 07:49] LABS: Normal RBC Morphology No; Platelets Checked Yes
[2024-11-09 07:50] LABS: Acanthocytes 1+; Anisocytosis 1+; Hypochromasia 1+; Ovalocytes 1+; Polychromasia 1+; Total Cells Counted 100
--- NOTE | 2024-11-09 07:58 | W.PN.HOSP.TC ---
Addendum entered and electronically signed by Roger Goel MD 11/09/24 22:12:
Attending Addendum-I saw and evaluated the patient. I reviewed the resident�s note and agree with findings and plan as documented in the resident�s note. Sub: seen this am. per mk is in excruciating pain. 'Im walking over to the OMFS
office and getting some answers' Patient sleeping comfortably, easily arousable. 'im in pain that Toradol really helped' No vision changes. No fevers chills. Full 12 point ROS reviewed and negative except as documented Exam- vitals reviewed in EMR
GEN-NAD HEENT right sided facial swelling, tenderness to palp, TA pulse present heart RRR lungs clear abd soft ostomy present with brown stool LE no edema Neuro AAO x 2
Plan:
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
- resolving
- head ct-Moderate atrophy. Moderate to severe leukomalacia, no bleed
- underlying dementia
# GCA flare
- stop trending CRP
- cont prednisone 60mg daily- eventual start to taper in @ 2 weeks
- d/w rheum
- pain control
- cont prn Toradol
# Right sided Facial swelling
-CT Face 11/05 -Moderate to severe degenerative changes of the bilateral temporomandibular joints. Large right temporomandibular joint effusion, likely reactive/inflammatory.
-transfer to [facility] for drainage and cx - awaiting bed x 5+ days Dr. Fisher hospitalist accepted
-unclear etiology
-d/w ENT rheum ortho and OMFS-unable to tap
-pain control -cont tramadol and Toradol prn
# Hyponatremia
- hypovolemic
- encourage PO-DC IVF
- cont salt tabs
- recheck BMP in am
# HTN Urgency
- exacerbated by pain and steroids but likely chronic
- increase norvasc
# Coccyx stage 2 PI- POA - wound care
# RA- cont abatacept as OP and leflunomide
# Tobacco abuse- advised to quit
# PN- cont gabapentin
# Lumbar stenosis and comp fx- s/p stimulator
# GERD- cont Protonix
# Hypothyroidism-cont levothyroxine
# h/o diverticular dz- has ostomy - cont ostomy care
code FULL d/w POA
Dispo - transfer to [facility] when bed avail
DVTp- cont lovenox
Time spent coordinating care, review of plan of care with resident, personally reviewed records in EMR, med rec, consults, notes, labs, radiology, d/w nursing and POA at great length� 53 mins
Original Note:
Today's Communication/Plan
-
Patient waiting for bed availability at [facility]; was accepted at the service of Dr. Fisher
Increase amlodipine to 10 mg
Decrease Toradol to 7.5mg prn
IV Tylenol scheduled
Assessment / Plan
Assessment / Plan
74-year-old female presented with concerns of weakness and ear and jaw pain.
#Temporal arteritis/GCA flareup
# Right ear and right TMJ pain
# Right-sided facial swelling
- Visible swelling and pain in the right TMJ region. Tender to touch; visibly less than yesterday
- continue on increased dose of prednisone 60 mg; plan is to at least continue for total 2 week before tapering; at home patient is on 6 mg prednisone daily
- Patient on monthly Orencia with last dose on October 26
- Leflunomide 20 mg daily; continue
-- ESR is elevated to 61 initially --- >145---> 96-->133---99--99
--CRP initially elevated to 181---> 270--->193---> 160-->218--- 169.3--145-->212
- Tramadol 50 mg every 4H as needed for pain; IV Toradol 15 mg as needed Q6H
- Continue warm compresses
CT: 11/05/2024 Moderate to severe degenerative changes of the bilateral temporomandibular joints. Large right temporomandibular joint effusion, likely reactive/inflammatory.
-- Discussed with Dr. Whitlock; states unlikely for GCA flare to have TMJ fusion. Recommended evaluation for possible drainage
-- Case was Discussed with Ortho, ENT, Oral surgery and IR. Suggestion was made for [facility] transfer. Transfer was initiated and patient was accepted and the service of Dr. Fisher; awaiting bed availability
# Subjective shortness of breath
-Resolved
- Physical exam with clear to auscultation
- chest x-ray with no acute disease of the chest
# Hypertension with readings intermittently consistent with hypertensive urgency
- Patient not on any antihypertensive at home
- Likely elevated blood pressure in the setting of increased steroid doses and ongoing pain
- Continue/increase Norvasc to 10 mg p.o. daily; ctm
- Hydralazine po for as needed
# Weakness
# Failure to thrive
- No signs of infections at this time; no neurological deficit
- pt/ot recommended skilled rehab; patient amenable; prefers [facility]; will check with the rn case management for approval/Auth
# Altered mental status
# Progressive dementia
# TME from above
- Head CT with significant progression of atrophy and leukomalacia
- Overall patient AAO x 3
# Headache
# Known meningiomas from previous imaging
- Patient rates the pain as more of a discomfort rather than pain; resolved mostly
- Head CT with no new acute findings however there is significant progression of atrophy and leukomalacia
- Intermittent per patient
# Acute on chronic hyponatremia
-Patient not eating or drinking much due to the jaw pain.
- Continue to monitor; down from 128--132(stable)(uses sodium tabs on daily basis at home)
- Continue home sodium chloride 1000 mg tablet daily
- Maintain gentle IV fluids.
#History of diverticulitis
- status post hemicolectomy with ileostomy,
# History of peptic ulcer disease
- Continue pantoprazole 40 mg daily
#Hypothyroidism
- Continue levothyroxine 100 mcg daily
# History of hypotension
- Continue to monitor; currently stable
#Chronic pain
- Continue gabapentin 300 mg twice daily
#Tobacco smoking
- Encouraged to quit
Coccyx Stage 2 Pressure Injury, POA
CODE STATUS: Full code
DVT prophylaxis: Lovenox
Dispo to SNF per PT recommendation
Dispo: [facility]
Anticipated Discharge: Within 24 hours
Subjective/Interval History
-
Date of Service: November 09, 2024
Seen and examined at bedside. Reports that her pain is much better controlled after starting Toradol. She was able to sleep better last night.
Objective Data
-
Labs:
Laboratory Results
11/09/24
06:01
WBC 7.2
Hgb 13.4
Hct 41.6
Plt Count
Sodium 132 L
Potassium 4.6
Chloride 102
Carbon Dioxide 23
BUN 19 H
Creatinine 0.7
Glucose 76
Calcium 9.8
Vital Signs:
Vital Signs
Temp Pulse Resp BP Pulse Ox
98.6 F 69 16 172/93 93
11/09/24 00:07 11/09/24 00:07 11/09/24 00:07 11/09/24 00:07 11/09/24 00:07
I&O
11/08/24 11/09/24 11/10/24
06:59 06:59 06:59
Intake Total 1800 / 1800
Output Total 350 / 350
Balance 1450 / 1450
Review of Systems
-
History Source: Patient
All other systems: Reviewed and negative (Except as documented)
Musculoskeletal: Reports Other (Right jaw pain in front of the right ear)
Physical Exam
-
General: Well Developed and Well Nourished
HEENT: Normocephalic, Atraumatic and Other (Visible swelling near the right TMJ. Mild tender to touch)
Respiratory: Clear to Auscultation and Non Labored Respirations; Negative Wheezes
Cardiac: Regular Rhythm and S1/S2
GI: Soft and Ostomy (With brownish stools)
Musculoskeletal: Other (Ulnar deviation of the hands.)
Skin: Warm and Dry
Neuro: Awake, Alert and Oriented
Psych: Calm
Data Reviewed
-
Labs: Labs Reviewed by me, Discussed with Physician, Discussed with Patient and Discussed with Family
[2024-11-09] MEDS: NEURONTIN 300 MG PO ×2 (08:21→20:05)
[2024-11-09] MEDS: PROTONIX 40 MG PO (08:21)
[2024-11-09] MEDS: OSCAL 500 + D 500 MG PO ×3 (08:21→20:16)
[2024-11-09] MEDS: SODIUM CHLORIDE 1 GRAM PO (08:21)
[2024-11-09] MEDS: NON-FORMULARY ITEM 20 MG PO (08:21)
[2024-11-09] MEDS: VITAMIN B-12 500 MCG PO (08:22)
[2024-11-09] MEDS: NORVASC 5 MG PO (08:22)
[2024-11-09] MEDS: MAG-TAB SR 84 MG PO (08:22)
[2024-11-09] MEDS: FOLVITE 1 MG PO (08:23)
[2024-11-09] MEDS: TORADOL 15 MG IV ×2 (08:23→16:42)
[2024-11-09] MEDS: DELTASONE 60 MG PO (08:23)
[2024-11-09] MEDS: APRESOLINE 50 MG PO (08:26)
[2024-11-09] MEDS: ULTRAM 50 MG PO (10:05)
[2024-11-09] MEDS: NSS 1000 IV (10:19)
[2024-11-09 11:02] VITALS: BP 144/70
--- NOTE | 2024-11-09 11:58 | PN.CDI ---
CDI
- -
CDI:
Physician Documentation Request
Admit Date: 11/04/24 09:32
Dear Doctor Kasey,
Clinical Indicators:
11/09 PN, 'Hypertension- Patient not on any antihypertensive at home- Likely elevated blood pressure in the setting of increased steroid doses and ongoing pain'
Medications ordered: Hydralazine 5 mg IV prn (3 doses given), Hydralazine 50 mg po TID prn (4 doses given) amlodipine 5 mg po daily
BP trend:
11/05/24
10:16 11/07/24
08:11 11/07/24
15:47
Blood pressure 198/104 182/100 184/96
11/07/24
23:32 11/09/24
07:00
Blood pressure 189/103 192/82
Please clarify which, if any of the following, is a more accurate diagnosis reflecting the type and acuity of the documented hypertension:
Hypertensive Urgency - B/P is severely elevated (systolic > or = to 180 or diastolic > or = to 110) but there is no associated organ damage. Symptoms may include: headache, shortness of breath, nosebleeds, severe anxiety. Treatment usually consists
of addition to or adjusting of oral medications and does not generally necessitate hospitalization.
Hypertension only (documentation complete)
Other (please specify)
Use of terms such as suspected, likely, concern for, or probable (associated with a specific diagnosis that is being evaluated, monitored, or treated as if it exists) are acceptable and can be coded in the inpatient setting, when documented at the
time of discharge.
Thank you,
MISAEL Borrero RN
CDI Specialist
available via tiger text
Please use your independent medical judgment in providing your response.
[2024-11-09] MEDS: OFIRMEV 50 MG IV ×2 (14:50→20:05)
[2024-11-09 15:00] VITALS: BP 160/93
--- NOTE | 2024-11-09 15:42 | CM ---
Addendum entered by Monika Lynch RN 11/09/24 16:34:
Spoke with . As per director hospital can not send a patient to another ED with out a bed.
Explained to that pt is on a waiting list for [facility] . Transfer line will call when bed available.
Original Note:
Spoke with Edda at [facility] line [phone] Kamron Fisher has accepted patient for transfer.
Bed is not available yet. She said she has nursing desk number will call when bed ready and with address.
Pt will be transported via ambulance .
PLAN To [facility] when bed ready
[2024-11-09] MEDS: LOVENOX 30 MG SC (18:25)
[2024-11-09 23:02] VITALS: BP 136/78
[2024-11-09] MEDS: TORADOL 7.5 MG IV (23:40)
[2024-11-10] MEDS: OFIRMEV 50 MG IV ×2 (02:34→09:04)
[2024-11-10] MEDS: SYNTHROID 100 MCG PO (05:24)
[2024-11-10] MEDS: TORADOL 7.5 MG IV ×2 (05:34→12:21)
[2024-11-10 07:00] VITALS: BP 197/102
[2024-11-10 07:57] LABS: Hematocrit 40.5 % (37.0-47.0); Hemoglobin 13.4 g/dL (12.0-16.0); Mean Corp Hgb Conc. 33.1 g/dL (33.0-37.0); Mean Corpuscular Volume 87.5 fL (81.0-99.0); Platelet Count 365 10^3/uL (130-400); Red Cell Dist. Width 16.4 % (11.5-14.5)
[2024-11-10 08:14] LABS: Blood Urea Nitrogen 17 mg/dl (7-17); Calcium 9.5 mg/dl (8.4-10.2); Carbon Dioxide 24 mmol/L (22-30); Chloride 103 mmol/L (98-107); Estimated Creatinine Clearance 61 ml/min; Glucose 65 mg/dl (70-99); Potassium 4.4 mmol/L (3.5-5.1); Sodium 132 mmol/L (135-145); eGFR > 60.00
--- NOTE | 2024-11-10 08:17 | W.PN.HOSP.TC ---
Addendum entered and electronically signed by Roger Goel MD 11/10/24 21:09:
Attending Addendum-I saw and evaluated the patient. I reviewed the resident�s note and agree with findings and plan as documented in the resident�s note. Sub: per patient is in excruciating pain. Patient appears comfortable. 'im in pain im
ready to walk out of here' No vision changes. No fevers chills. Pain on opening mouth. Full 12 point ROS reviewed and negative except as documented Exam- vitals reviewed in EMR GEN-NAD HEENT right sided facial swelling, tenderness to palp, TA
pulse present heart RRR lungs clear abd soft ostomy present with brown stool LE no edema Neuro AAO x 2
Plan:
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
- resolved
# GCA flare
- stop trending CRP
- cont prednisone 60mg daily- eventual start to taper in @ 2 weeks
- d/w rheum
- pain control
- cont prn Toradol
# Right sided Facial swelling
-CT Face 11/05 -Moderate to severe degenerative changes of the bilateral temporomandibular joints. Large right temporomandibular joint effusion, likely reactive/inflammatory.
-cancel transfer to [facility] for drainage and cx - awaiting bed x 6+ days
-unclear etiology
-d/w rheum ortho and OMFS-unable to tap
-pain control -cont tramadol and Toradol prn
-c/s ENT for eval- hopeful to aspirate effusion
# Hyponatremia
- hypovolemic
- encourage PO
- cont salt tabs
- recheck BMP in am
# HTN Urgency
- exacerbated by pain and steroids but likely chronic
- cont new norvasc add losartan
# Coccyx stage 2 PI- POA - wound care
# RA- cont abatacept as OP and leflunomide
# Tobacco abuse- advised to quit
# PN- cont gabapentin
# Lumbar stenosis and comp fx- s/p stimulator
# GERD- cont Protonix
# Hypothyroidism-cont levothyroxine
# h/o diverticular dz- has ostomy - cont ostomy care
code FULL d/w POA
Dispo - cancel transfer to [facility] to [facility] when able
DVTp- cont lovenox
Time spent coordinating care, review of plan of care with resident, personally reviewed records in EMR, med rec, consults, notes, labs, radiology, d/w nursing and POA at great length� 51 mins
Original Note:
Today's Communication/Plan
-
Transfer to [facility]; awaiting bed availability
Continue pain medications; tramadol, Toradol and scheduled Tylenol
Discontinue IV fluid
ENT official consult.
start losartan
Follow-up on culture and cytology of respiratory fluid
Increase gabapentin to 300 3 times daily
Assessment / Plan
Assessment / Plan
74-year-old female presented with concerns of weakness and ear and jaw pain.
#Temporal arteritis/GCA flareup
# Right ear and right TMJ pain
# Right-sided facial swelling
- Visible swelling and pain in the right TMJ region. Tender to touch; visibly less than yesterday
- continue on increased dose of prednisone 60 mg; plan is to at least continue for total 2 week before tapering; at home patient is on 6 mg prednisone daily
- Patient on monthly Orencia with last dose on October 26
- Leflunomide 20 mg daily; continue
--ESR is elevated to 61 initially --- >145---> 96-->133---99--99
--CRP initially elevated to 181---> 270--->193---> 160-->218--- 169.3--145-->212
- Tramadol 50 mg every 4H as needed for pain; IV Toradol 7.5 mg as needed Q6H; scheduled Tylenol
- Continue warm compresses
-- given ongoing pain and pending bed avilability at [facility]; will place official ENT consult.
CT: 11/05/2024 Moderate to severe degenerative changes of the bilateral temporomandibular joints. Large right temporomandibular joint effusion, likely reactive/inflammatory.
-- Discussed with Dr. Whitlock; states unlikely for GCA flare to have TMJ fusion. Recommended evaluation for possible drainage
-- Case was Discussed with Ortho, ENT, Oral surgery and IR. Suggestion was made for [facility] transfer. Transfer was initiated and patient was accepted and the service of Dr. Fisher; awaiting bed availability
update: Dr. Parks(ENT) aspirated 8 cc of bryant cloudy fluid. There is a concern of possible infection however patient does not have any fevers or any elevated white count. The fluid was sent for culture and cytology. Will hold on antibiotics for
now. ? Vanco/Ancef
# Subjective shortness of breath
- Resolved
- Physical exam with clear to auscultation
- chest x-ray with no acute disease of the chest
# Hypertension with readings intermittently consistent with hypertensive urgency
- Patient not on any antihypertensive at home
- Likely elevated blood pressure in the setting of increased steroid doses and ongoing pain
- Continue Norvasc to 10 mg p.o. daily; ctm
- Hydralazine po for as needed
- will add losartan
# Weakness
# Failure to thrive
- No signs of infections at this time; no neurological deficit
- pt/ot recommended skilled rehab; patient amenable; prefers [facility]; will check with the family caseworker for approval/Auth when able
# Altered mental status
# Progressive dementia
# TME from above
- Head CT with significant progression of atrophy and leukomalacia
- Overall patient AAO x 3
# Headache
# Known meningiomas from previous imaging
- Patient rates the pain as more of a discomfort rather than pain; resolved mostly
- Head CT with no new acute findings however there is significant progression of atrophy and leukomalacia
- Intermittent per patient
# Acute on chronic hyponatremia
-Patient not eating or drinking much due to the jaw pain.
- Continue to monitor; 132 (stable)(uses sodium tabs on daily basis at home)
- Continue home sodium chloride 1000 mg tablet daily
- Discontinue IV fluids.
#History of diverticulitis
- status post hemicolectomy with ileostomy,
# History of peptic ulcer disease
- Continue pantoprazole 40 mg daily
#Hypothyroidism
- Continue levothyroxine 100 mcg daily
# History of hypotension
- Continue to monitor; currently stable
#Chronic pain
- Continue gabapentin 300 mg twice daily
#Tobacco smoking
- Encouraged to quit
Coccyx Stage 2 Pressure Injury, POA
CODE STATUS: Full code
DVT prophylaxis: Lovenox
Dispo: Transfer to [facility]; awaiting bed availability
Anticipated Discharge: Within 24 hours
Subjective/Interval History
-
Date of Service: November 10, 2024
Seen and examined at bedside. Reports that her pain is slightly better but still bothering her. She was able to sleep better last night.
Objective Data
-
Labs:
Laboratory Results
11/10/24
07:27
WBC 9.8
Hgb 13.4
Hct 40.5
Plt Count 365
Sodium 132 L
Potassium 4.4
Chloride 103
Carbon Dioxide 24
BUN 17
Creatinine 0.6
Glucose 65 L
Calcium 9.5
Vital Signs:
Vital Signs
Temp Pulse Resp BP Pulse Ox
98.5 F 74 14 136/78 96
11/09/24 23:02 11/09/24 23:02 11/09/24 23:02 11/09/24 23:02 11/09/24 23:02
I&O
11/09/24 11/10/24 11/11/24
06:59 06:59 06:59
Intake Total 960 / 960
Output Total 200 / 200
Balance 760 / 760
Review of Systems
-
History Source: Patient
All other systems: Reviewed and negative (Except as documented)
Musculoskeletal: Reports Other (Right jaw pain in front of the right ear)
Physical Exam
-
General: Well Developed and Well Nourished
HEENT: Normocephalic, Atraumatic and Other (Visible swelling near the right TMJ. Mild tender to touch)
Respiratory: Clear to Auscultation and Non Labored Respirations; Negative Wheezes
Cardiac: Regular Rhythm and S1/S2
GI: Soft and Ostomy (With brownish stools)
Musculoskeletal: Other (Ulnar deviation of the hands.)
Skin: Warm and Dry
Neuro: Awake, Alert and Oriented
Psych: Calm
Data Reviewed
-
Labs: Labs Reviewed by me, Discussed with Physician, Discussed with Patient and Discussed with Family
[2024-11-10] MEDS: DELTASONE 60 MG PO (09:05)
[2024-11-10] MEDS: NORVASC 10 MG PO (09:05)
[2024-11-10] MEDS: PROTONIX 40 MG PO (09:05)
[2024-11-10] MEDS: NEURONTIN 300 MG PO ×4 (09:11→21:17)
[2024-11-10] MEDS: NON-FORMULARY ITEM 20 MG PO (09:11)
[2024-11-10] MEDS: SODIUM CHLORIDE 1 GRAM PO (09:12)
[2024-11-10] MEDS: ULTRAM 50 MG PO (09:17)
[2024-11-10] MEDS: FOLVITE PO (09:28)
[2024-11-10] MEDS: MAG-TAB SR PO (09:28)
[2024-11-10] MEDS: OSCAL 500 + D PO (09:28)
[2024-11-10] MEDS: VITAMIN B-12 PO (09:28)
[2024-11-10] MEDS: APRESOLINE 50 MG PO (09:57)
--- NOTE | 2024-11-10 09:57 | PTCARENOTE ---
at 0957, patient's b/p still elevated at 190/100. was 197/102 at 0730, PRN Apresoline administered. pain continues in right ear radiating down to jaw area, especially when she opens mouth/chews. area tender to palpation and swelling in TM area.
feels pain better but still excruciating at times, not eating or drinking much due to pain. vss, will continue to monitor.
--- NOTE | 2024-11-10 10:42 | CM ---
Spoke with Ira at [facility] line no bed is available at this time.
Ira advised MD call From [facility] with pt update. [employer] notified.
and patient are anxious for transfer. Reinforced no bed available and can not transfer unless bed ready.
[facility] line [phone] Kamron Fisher
PLAN Transfer to [facility] after bed ready
[2024-11-10 11:47] VITALS: BMI 19.2
[2024-11-10 11:59] VITALS: BP 149/74; PULSE 74
[2024-11-10] MEDS: COZAAR 25 MG PO (12:15)
[2024-11-10] MEDS: XYLOCAINE 1% WITH EPINEPHRINE 5 ML INFIL (15:00)
--- NOTE | 2024-11-10 15:07 | CON.MD ---
Consultation - Medical
-
74 yo c R facial swelling
Afebrile
CT reveals effusion around TM joint on right
Middle ear/ mastoid clear
Parotid gland normal
Transfer planned to [facility], but delayed as no beds available
PE - Pt uncomfortable, non toxic
Afebrile
Palpable swelling in area of TM joint, not the parotid
CT reviewed demonstrating large effusion around joint
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
Generally an oral surgery issue, but pt transfer delayed
After local anesthesia, aspirated 8 cc of cloudy bryant fluid
Seems to be an infected fluid collection
Sent for aerobic and anaerobic culture
Also sent for cytology
Would add antibx - generally suspect Gm positive, pt with PCN and clinda allergy
Consider Vancomycin or at least Ancef awaiting culture results
[2024-11-10 15:25] VITALS: BP 111/70
--- NOTE | 2024-11-10 15:45 | PTCARENOTE ---
at 1500, after local anesthesia, Dr. Parks aspirated 8 mls of cloudy bryant fluid at bedside in TM area. pt tolerated procedure very well. no bleeding afterwards, fluid sent for specimens as ordered. will continue to monitor.
[2024-11-10] MEDS: OSCAL 500 + D 500 MG PO ×2 (17:37→21:16)
[2024-11-10] MEDS: LOVENOX 30 MG SC (17:38)
--- NOTE | 2024-11-10 18:13 | PTCARENOTE ---
since patient had aspiration done, appears more comfortable. reports pain tolerable, actually able to laugh without crying and wants fish for dinner,, sitting oob in chair, will continue to monitor.
[2024-11-10 23:00] VITALS: BP 139/69
--- NOTE | 2024-11-11 07:09 | W.PN.HOSP.TC ---
Addendum entered and electronically signed by Roger Goel MD 11/11/24 20:11:
Attending Addendum-I saw and evaluated the patient. I reviewed the resident�s note and agree with findings and plan as documented in the resident�s note. Sub: seen with and first time meeting daughter. Per patient felt greatly improved
after drainage yesterday. requesting to give Toradol atc and daughter requesting IV tylenol. No vision changes. No fevers chills. Full 12 point ROS reviewed and negative except as documented Exam- vitals reviewed in EMR GEN-NAD HEENT right
sided facial swelling increased, tenderness to palp, no redness or warmth fluctuant TA pulse present heart RRR lungs clear abd soft ostomy present with brown stool LE no edema Neuro AAO x 2
Plan:
# Right sided Facial swelling- TMJ fluid collection
-worsening
-s/p drainage 11/10- Dr. Parks -fluid sent for GS and cx
-with leukocytosis start Rocephin due to PCN allergy d/w pharmacy
-check MRI r/o OM
-CT Face 11/05 -Moderate to severe degenerative changes of the bilateral temporomandibular joints. Large right temporomandibular joint effusion, likely reactive/inflammatory.
-d/w HUP regarding more urgent transfer due to worsening of condition- awaiting bed x 7+ days
-unclear etiology
-d/w rheum ortho and OMFS-unable to tap
-pain control -cont tramadol and Toradol prn increase BRADLEY due to pain
# Toxic Metabolic Encephalopathy
- resolved
# Hyponatremia
- start IVF
- hypovolemic
- encourage PO
- cont salt tabs
- recheck BMP in am
# HTN Urgency
- improved
- exacerbated by pain and steroids but likely chronic
- cont new norvasc add losartan
# Coccyx stage 2 PI- POA - wound care
# RA- cont abatacept as OP and leflunomide
# Tobacco abuse- advised to quit
# PN- cont gabapentin
# Lumbar stenosis and comp fx- s/p stimulator
# GERD- cont Protonix
# Hypothyroidism-cont levothyroxine
# h/o diverticular dz- has ostomy - cont ostomy care
code FULL d/w POA
Dispo - transfer to [facility]- d/w [facility] transfer center and accepting physician
DVTp- cont lovenox
Time spent coordinating care, DC planning, review of DC plan of care with resident, transition of care, review of records, med rec, consults, notes, d/w consultants, accepting hospitalist, nursing, family, and CM� 40 mins >50% of this time was
devoted to counseling and coordination of care
Original Note:
Today's Communication/Plan
-
Decrease gabapentin to twice daily,
Restart IV fluids
MRI face
Scheduled IV Toradol
As needed IV Tylenol
Blood culture
IV ceftriaxone; consult ID
decreased prednisone to 40 mg
Assessment / Plan
Assessment / Plan
74-year-old female presented with concerns of weakness and ear and jaw pain.
#Temporal arteritis/GCA flareup
- Continue with prednisone: Decrease the dose to 40 mg(she was on 60 mg for 9 days and uses 6 mg daily at home)
- Patient on monthly Orencia with last dose on October 26
- Leflunomide 20 mg daily; continue
- Continue pain control
# Right TMJ pain secondary to right TMJ effusion
# Right-sided facial swelling
- Tramadol 50 mg every 4H as needed for severe pain pain; IV Toradol 7.5 mg Q6H for moderate pain; IV Tylenol as needed for moderate pain
- Continue warm compresses
CT: 11/05/2024 Moderate to severe degenerative changes of the bilateral temporomandibular joints. Large right temporomandibular joint effusion, likely reactive/inflammatory.
-- Case was Discussed with Ortho, ENT, Oral surgery and IR. Suggestion was made for [facility] transfer. Transfer was initiated and patient was accepted and the service of Dr. Fisher; awaiting bed availability
Dr. Parks(ENT) aspirated 8 cc of bryant cloudy fluid on 11/10/24. There is a concern of possible infection however patient does not have any fevers or any elevated white count. The fluid was sent for culture and cytology.
- Patient's daughter refused morphine and requested to decrease gabapentin back to twice daily.
- Culture from the aspiration + viridans Streptococcus group; will start IV ceftriaxone and will get MRI ; ? Osteomyelitis
- Check blood culture; consult ID
#Subjective shortness of breath
- Resolved
- Physical exam with clear to auscultation
- chest x-ray with no acute disease of the chest
# Hypertension with readings intermittently consistent with hypertensive urgency
- Patient not on any antihypertensive at home
- Likely elevated blood pressure in the setting of increased steroid doses and ongoing pain
- Continue Norvasc to 10 mg p.o. daily; ctm
- Hydralazine po for as needed
- will add losartan
# Weakness
# Failure to thrive
- No signs of infections at this time; no neurological deficit
- pt/ot recommended skilled rehab; patient amenable; prefers [facility]; will check with the director of casework department for approval/Auth when able
# Altered mental status
# Progressive dementia
# TME from above
- Head CT with significant progression of atrophy and leukomalacia
- Overall patient AAO x 3
- Intermittent confusion
# Headache
# Known meningiomas from previous imaging
- Patient rates the pain as more of a discomfort rather than pain; resolved mostly
- Head CT with no new acute findings however there is significant progression of atrophy and leukomalacia
- Intermittent per patient
# Acute on chronic hyponatremia
-Patient not eating or drinking much due to the jaw pain.
- Continue to monitor; 132 (stable)(uses sodium tabs on daily basis at home)
- Continue home sodium chloride 1000 mg tablet daily
- Restart IV fluids.
#History of diverticulitis
- status post hemicolectomy with ileostomy,
# History of peptic ulcer disease
- Continue pantoprazole 40 mg daily
#Hypothyroidism
- Continue levothyroxine 100 mcg daily
# History of hypotension
- Continue to monitor; currently stable
#Chronic pain
- Continue/increase gabapentin 300 mg TID
#Tobacco smoking
- Encouraged to quit
Coccyx Stage 2 Pressure Injury, POA
CODE STATUS: Full code
DVT prophylaxis: Lovenox
Anticipated Discharge: Within 24 hours
Subjective/Interval History
-
Date of Service: November 11, 2024
Seen and examined at bedside. Offers no new complaints. Reports that overall her pain and swelling are better since the Fluid was taken out yesterday
Objective Data
-
Labs:
Laboratory Results
11/11/24
07:07
WBC Pending
Hgb Pending
Hct Pending
Plt Count Pending
Sodium Pending
Potassium Pending
Chloride Pending
Carbon Dioxide Pending
BUN Pending
Creatinine Pending
Glucose Pending
Calcium Pending
Vital Signs:
Vital Signs
Temp Pulse Resp BP Pulse Ox
98.1 F 65 18 139/69 96
11/10/24 23:00 11/10/24 23:00 11/10/24 23:00 11/10/24 23:00 11/10/24 23:00
I&O
11/10/24 11/11/24 11/12/24
06:59 06:59 06:59
Intake Total 960 / 960 480 / 480
Output Total 200 / 200
Balance 760 / 760 480 / 480
Review of Systems
-
History Source: Patient
All other systems: Reviewed and negative (Except as documented)
Musculoskeletal: Reports Other (Right jaw pain in front of the right ear)
Physical Exam
-
General: Well Nourished and Conversant
HEENT: Normocephalic, Atraumatic and Other (Visible swelling near the right TMJ. Mild tender to touch(decreased from yesterday))
Respiratory: Clear to Auscultation and Non Labored Respirations; Negative Wheezes
Cardiac: Regular Rhythm and S1/S2
GI: Soft and Ostomy (With brownish stools)
Musculoskeletal: Other (Ulnar deviation of the hands.)
Skin: Warm and Dry
Neuro: Awake, Alert and Oriented
Psych: Calm
Data Reviewed
-
Labs: Labs Reviewed by me, Discussed with Physician and Discussed with Patient
[2024-11-11] MEDS: SYNTHROID 100 MCG PO (07:21)
[2024-11-11 07:46] VITALS: BP 150/109
[2024-11-11 08:30] LABS: Hematocrit 39.5 % (37.0-47.0); Hemoglobin 13.1 g/dL (12.0-16.0); Mean Corp Hgb Conc. 33.2 g/dL (33.0-37.0); Mean Corpuscular Volume 89.2 fL (81.0-99.0); Platelet Count 402 10^3/uL (130-400); Red Cell Dist. Width 16.3 % (11.5-14.5)
[2024-11-11] MEDS: TORADOL 7.5 MG IV ×3 (08:54→21:13)
[2024-11-11] MEDS: DELTASONE 60 MG PO (08:55)
[2024-11-11] MEDS: NEURONTIN 300 MG PO ×2 (08:56→21:14)
[2024-11-11] MEDS: MAG-TAB SR PO ×2 (08:56→09:15)
[2024-11-11] MEDS: FOLVITE PO ×2 (08:56→09:17)
[2024-11-11] MEDS: COZAAR 25 MG PO (08:56)
[2024-11-11] MEDS: NORVASC 10 MG PO (08:56)
[2024-11-11] MEDS: PROTONIX 40 MG PO (08:57)
[2024-11-11] MEDS: VITAMIN B-12 PO ×2 (08:57→09:16)
[2024-11-11] MEDS: SODIUM CHLORIDE 1 GRAM PO (08:57)
[2024-11-11] MEDS: OSCAL 500 + D PO ×3 (08:58→16:53)
[2024-11-11] MEDS: NON-FORMULARY ITEM 20 MG PO (08:58)
[2024-11-11 09:10] LABS: Blood Urea Nitrogen 19 mg/dl (7-17); Calcium 9.5 mg/dl (8.4-10.2); Carbon Dioxide 24 mmol/L (22-30); Chloride 97 mmol/L (98-107); Estimated Creatinine Clearance 52 ml/min; Glucose 70 mg/dl (70-99); Potassium 4.6 mmol/L (3.5-5.1); Sodium 129 mmol/L (135-145); eGFR > 60.00
--- NOTE | 2024-11-11 10:54 | CM ---
Dr Head aspirated fluids from jaw.
Spoke with Layo at [facility] no bed is available at this time.
[facility] [phone] Kamron Fisher.
and patient aware of bed status
PLAN Transfer to [facility] after bed ready
--- NOTE | 2024-11-11 11:40 | VATNOTE ---
Called by PCN to restart pt's IV. New IV started in pt's L hand and 1 set of blood cultures drawn with insert. PCN to remove old IV.
[2024-11-11] MEDS: NSS 1000 IV (12:42)
[2024-11-11 15:48] VITALS: BP 122/73
--- NOTE | 2024-11-11 15:53 | W.PN.UPDATE ---
Update Note
Progress Note Update
Additional information: Patient was seen and examined at bedside in the morning around 730. Had minimal discomfort. Was very happy after the procedure yesterday. She even asked to go home as she was feeling fine. During the team rounds around
1130. We noticed that the swelling increased in size again and she was complaining of discomfort. We ordered an MRI as well for today for better evaluation. We also resumed IV fluids for better nutrition as well as for hyponatremia
Nurse informed us around 1230 that family requested to put IV Toradol on a schedule every 6 hours. Initially when we recommended IV Toradol her was very concerned and was refusing any NSAIDs given her history of gastric ulcer and we agreed
to use only a smaller dose of 7.5 mg as as needed. We also increased the gabapentin per the 's request yesterday to 300 mg 3 times a day however the daughter today requested to decrease it back to twice daily and also requested IV Tylenol
for pain. We did offer IV morphine however the daughter refused any stronger narcotics and states that they do not want morphine.
Had a discussion at length with family again around 3 PM and updated them on the culture results, consideration for ID consult, starting antibiotic, resuming the IV fluids, adjusting the pain medications. Awaiting the bed availability at [place].
Decreasing the prednisone. Patient and her daughter are aware that tramadol is also available for severe pain to be utilized as needed.
I called the [facility] transfer line around 445pm and requested to talk to a MD to facilitate the transfer, no MD was available from the accepting group. Left my personal cell phone number to a call back.
[2024-11-11] MEDS: NICODERM TRANSDERMAL 7 MG TRANSDERM (16:31)
[2024-11-11] MEDS: STERILE WATER FOR INJECTION 10 ML IV (16:48)
[2024-11-11] MEDS: ROCEPHIN 1000 MG IV (16:48)
--- NOTE | 2024-11-11 17:27 | W.PN.UPDATE ---
Update Note
Progress Note Update
I received call back from the [facility] transfer line. Spoke with Dr. Dave(hospitalist), ENT and Dr. Hopper(oral surgeon). After a long discussion Dr. Hopper agreed to accept her on his service and transfer is changed to level 0. Patient's
was made aware of this.
[2024-11-11] MEDS: OFIRMEV 100 IV (18:22)
[2024-11-11] MEDS: LOVENOX 30 MG SC (18:22)
[2024-11-11 19:00] VITALS: BP 127/72
[2024-11-11] MEDS: OSCAL 500 + D 500 MG PO (21:14)
[2024-11-11] MEDS: REMOVE NICOTINE PATCH 1 PATCH REMOVE (21:14)
--- NOTE | 2024-11-11 23:03 | PTCARENOTE ---
Pt transported to [place] at approx 2215. Scheduled meds given before transfer, PIV intact, VSS. picked up all belongings.
--- NOTE | 2024-11-14 13:39 | W.DCSUMMARY ---
Addendum entered and electronically signed by Roger Goel MD 11/16/24 13:28:
Read, reviewed, and agree
Arash Goel MD
Original Note:
Documented by User: Efren Parks MD, Resident 11/14/24 13:47
Discharge Summary
Discharge Data
Date of Admission: 11/02/24
Date of Discharge: 11/11/24
-
Pending Results: No
Hospital Course
Discharging Physician : Efren Parks MD ; Roger Goel MD
Disposition : [facility]
Primary care physician : Peter Keenan
Principal Discharge diagnosis : GCA flareup complicated with right temporomandibular joint effusion
Chronic Discharge diagnosis : History of peptic ulcer disease, hypothyroidism, hypertension, smoking, diverticular disease with colostomy, history of temporal arthritis on chronic steroid, history of memory loss, history of GI bleed, hiatal hernia
Hospital Course : This is a 74-year-old female with multiple medical conditions presenting to the emergency department with complaints of right jaw pain, right ear pain and weakness.
1-Temporal arteritis/GCA flareup; Right ear and right TMJ pain
Initially when the patient presented she did not had any visible swelling however she was mildly tender on the right TMJ. Next day in the hospital she developed swelling which was very tender and after discussing with outpatient commodities clerk her
prednisone dose was increased to 60 mg from 6 mg. Which helped with the swelling to an extent however she continues to experience intermittent pain especially with eating and preferring not to eat. IV fluids were given to the patient. Periodic
ESR and CRP were monitor which showed a downtrend. Given the ongoing pain a CT was obtained which showed a large right TMJ effusion. Case was discussed with ortho, ENT, oral surgery and IR. And decision was made to transfer to [facility]
[place]. Transfers are initiated and patient was accepted under the service of Dr. Fisher. However even after waiting for more than 6 days transfer could not happen. Patient continues to have worsening of the swelling and pain requiring multiple
medications. ENT was consulted again and they aspirated 8 cc fluid and there was sent for the culture which showed viridans Streptococcus group and pathology is also confirmed infected joint fluid. Patient was started on IV ceftriaxone. MRI of
the face was ordered(patient got transferred before completing MRI). Case was discussed again with Erum Harris, hospitalist, ENT and oral surgery. Oral surgery Dr. Hopper agreed to take her to his service. data deliverables manager and family was made aware of
that. Transport was arranged and patient was eventually transferred to [facility] on 11/11/2024
2-Hypertension
During her hospital stay her blood pressure remained elevated even though she does not take any medication for hypertension at home. Likely could be due to high dose of prednisone as well as ongoing pain. She was started on Norvasc 5 mg p.o. daily
as well as losartan and received few doses of hydralazine IV as needed.
3-Weakness; Failure to thrive
CT head was clear. Physical therapist recommended skilled rehab patient amenable.
4-Altered mental status; Progressive dementia; TME from above
Overall patient AAO x 3. Likely progression of dementia
5-Headache; intermittent
Known meningiomas from previous imaging
Head CT with no new acute findings however there is significant progression of atrophy and leukomalacia
6-Acute on chronic hyponatremia
Her sodium was found to be 130. She received IV normal saline IV fluid. Sodium seems to be stable around 131. Asymptomatic.
Chronic problems:
History of diverticulitis ;status post hemicolectomy with ileostomy,
History of peptic ulcer disease - on pantoprazole
Hypothyroidism - levothyroxine 100 mcg daily
Chronic pain - Continue gabapentin 300 mg twice daily
Tobacco smoking - Encouraged to quit
Coccyx Stage 2 Pressure Injury, POA
Important imaging findings :
CT Head W/o Iv Contrast:
Two small calcified meningiomas as described. Rounded calcification of the falx, slightly increasing since 2007 examination. This could either represent small meningioma or slight progression of falx calcification.
Moderate atrophy. Moderate to severe leukomalacia. Atrophy and leukomalacia have significantly progressed 2007 examination.
No evidence for acute intracranial hemorrhage
CT Neck With Iv Contrast: Moderate to severe degenerative changes of the bilateral temporomandibular joints. Large right temporomandibular joint effusion, likely reactive/inflammatory.
Severe multilevel degenerative changes of the cervical spine.
Severe right shoulder bursitis
Discharge Plan
-
Patient Disposition: Acute Care Hospital
Condition: Fair
Discharge Orders:
Discharge Patient (As Directed); Ordered 11/11/24
Ordered By: Efren Parks
Discharge Date and Time
Discharge Date/Time: 11/11/24 22:05
Print Language: KUWAITI

Documented by User: Roger Goel MD 11/16/24 13:27
Discharge Summary
Discharge Data
Date of Admission: 11/04/24
Date of Discharge: 11/16/24
Discharge Plan
-
Patient Disposition: Acute Care Hospital
Condition: Fair
Discharge Orders:
Discharge Patient (As Directed); Ordered 11/11/24
Ordered By: Efren Parks
Discharge Date and Time
Discharge Date/Time: 11/11/24 22:05
Print Language: [place]
== END 2024-11-11 22:05 | disposition short-term general hospital (02) | DRG 545 ==
LOC: 3 WEST ACU 09:32
PROVIDERS: ADMITTING PHYSICIAN Family Medicine; EMERGENCY PHYSICIAN Emergency Medicine; FAMILY PHYSICIAN Family Medicine; OTHER PHYSICIAN Otolaryngology
PROC: 0R9 Upper Joints, Drainage (ICD-10-PCS; 2024-11-10)
DX: M31.6 Other giant cell arteritis (principal); G92.8 Other toxic encephalopathy; E22.2 Syndrome of inappropriate secretion of antidiuretic hormone; M26.621 Arthralgia of right temporomandibular joint; I16.0 Hypertensive urgency; F03.90 Unspecified dementia, unspecified severity, without behavioral disturbance, psychotic disturbance, mood disturbance, and anxiety; M06.9 Rheumatoid arthritis, unspecified; F17.200 Nicotine dependence, unspecified, uncomplicated; M48.061 Spinal stenosis, lumbar region without neurogenic claudication; K21.9 Gastro-esophageal reflux disease without esophagitis; E03.9 Hypothyroidism, unspecified; I10 Essential (primary) hypertension; R62.7 Adult failure to thrive; L89.152 Pressure ulcer of sacral region, stage 2; M47.812 Spondylosis without myelopathy or radiculopathy, cervical region; M75.51 Bursitis of right shoulder; D32.9 Benign neoplasm of meninges, unspecified; Z79.899 Other long term (current) drug therapy; Z87.11 Personal history of peptic ulcer disease; G89.29 Other chronic pain; Z75.1 Person awaiting admission to adequate facility elsewhere; Z93.2 Ileostomy status
CPT/HCPCS: 70450; 70491; 71045; 80048; 80053; 81003; 81015; 83735; 85025; 85027; 85652; 86140; 87040; 87070; 87075; 87077; 87086; 87205; 88173; 93005; 96360; 97116; 97129; 97163; 97167; 97530; 97535; 99285; Q9967